=== PATIENT | female | born 1950 | race Caucasian/White ===

== ENCOUNTER → 2016-09-18 | Outpatient (CLI) | payer MEDICARE ==
--- NOTE | 2016-09-18 13:27 | ECHOS ---
DATE OF SERVICE: 09/18/2013 STRESS ECHOCARDIOGRAM INDICATION: Tachycardia and chest pressure. BASELINE HEART RATE: 90 BASELINE BLOOD PRESSURE: 130/97 MAXIMUM HEART RATE: 149 MAXIMUM BLOOD PRESSURE: 130/97 85% MPHR: 131 100% MPHR: 154 METS: 6.6 MAX STAGE REACHED: II TOTAL EXERCISE TIME: 4:45 Baseline EKG revealed sinus mechanism with IVCD of LBBB type isolated PVCs. Patient walked for 4 minutes 45 seconds. Had isolated PVCs. Achieved a maximum heart rate of 149 beats per minute, which is well above 85% of predicted maximum. She developed fatigue and shortness of breath, but did not have any angina or arrhythmia. EKG remained inconclusive. By EKG criteria, this is an inconclusive stress test with limited exercise capacity. There was a resting left bundle branch block pattern to begin with. Baseline echo images revealed a normal wall motion and wall thickening. At peak exercise, there was good augmentation of left ventricular wall motion and wall thickening of all segments. However, the fourth chamber view was suboptimal and endocardial margins were not seen. In all other views, there is good augmentation of left ventricular wall motion and wall thickening suggesting that there is no evidence of stress induced ischemia. FINAL IMPRESSION: 1. Limited exercise capacity with inconclusive stress test by EKG criteria. 2. Probably normal stress echocardiogram with somewhat limited views in the fourth chamber view postexercise, but no clear cut ischemia is noted. MTDD
== END | disposition home or self-care (01) ==
LOC: RADNMMAIN 09:04
PROVIDERS: ATTEND Family Medicine
DX: R00.0 Tachycardia, unspecified (principal)
CPT/HCPCS: 93017; 93350

== ENCOUNTER → 2017-02-16 | Outpatient (CLI) | payer MEDICARE ==
--- NOTE | 2017-02-18 12:43 | MM ---
Reason for exam: screening (asymptomatic). Last mammogram was performed 1 year and 1 month ago. History: Patient is postmenopausal and history of other cancer. Family history of premenopausal breast cancer in mother and breast cancer in paternal aunt. Physical Findings: A clinical breast exam by your physician is recommended on an annual basis and results should be correlated with mammographic findings. MG 3D Screening Mammo W/Cad Bilateral CC and MLO view(s) were taken. Prior study comparison: January 20, 2016, bilateral MG screening mammo w CAD. January 17, 2015, bilateral MG screening mammo w CAD. There are scattered fibroglandular densities. There are typically benign calcifications in both breasts. There is chronic nodularity bilaterally, stable. No significant changes when compared with prior studies. ASSESSMENT: Benign, BI-RAD 2 RECOMMENDATION: Routine screening mammogram of both breasts in 1 year.
== END | disposition home or self-care (01) ==
LOC: RADMAMWWP 10:32
PROVIDERS: ATTEND Family Medicine
DX: Z12.31 Encounter for screening mammogram for malignant neoplasm of breast (principal)
CPT/HCPCS: 77063; 77067

== ENCOUNTER 2018-02-11 08:34 | Emergency (ER) | payer MEDICARE ==
[2018-02-11 09:20] LABS: Basophils % (A) 1 %; Eosinophils # (A) 0.2 k/uL (0-0.7); Eosinophils % (A) 5 %; HCT 41.1 % (34.0-46.0); Lymphocytes # (A) 1.1 k/uL (1.0-4.8); Lymphocytes % (A) 23 %; MCH 28.2 pg (25.0-35.0); MCHC 34.1 g/dL (31.0-37.0); MCV 82.6 fL (80.0-100.0); Mean Platelet Volume 7.6; Monocytes # (A) 0.3 k/uL (0-1.0); Monocytes % (A) 6 %; Neutrophils # (A) 2.9 k/uL (1.3-7.7); Neutrophils % (A) 63 %; Platelet Count 202 k/uL (150-450); RBC 4.98 m/uL (3.80-5.40); RDW 13.2 % (11.5-15.5); WBC 4.7 k/uL (3.8-10.6)
[2018-02-11 09:32] LABS: ALT 37 U/L (9-52); AST 38 U/L (14-36); Albumin 4.1 g/dL (3.5-5.0); Alkaline Phosphatase 74 U/L (38-126); Anion Gap 9 mmol/L; Blood Urea Nitrogen 20 mg/dL (7-17); Calcium 10.1 mg/dL (8.4-10.2); Carbon Dioxide 26 mmol/L (22-30); Chloride 106 mmol/L (98-107); Glucose 97 mg/dL (74-99); INR 0.9 (<1.2); Partial Thromboplastin Time 23.2 sec (22.0-30.0); Potassium 3.9 mmol/L (3.5-5.1); Prothrombin Time 10.1 sec (9.0-12.0); Sodium 141 mmol/L (137-145); Total Bilirubin 0.4 mg/dL (0.2-1.3); Total Protein 7.1 g/dL (6.3-8.2)
--- NOTE | 2018-02-11 09:32 | ED ---
General Adult HPI - General Chief complaint: Chest Pain Stated complaint: palpitations Time Seen by Provider: 02/11/18 08:44 Source: patient, RN notes reviewed, old records reviewed Mode of arrival: wheelchair Limitations: no limitations - History of Present Illness Initial comments: 67-year-old female presenting for evaluation of palpitations and chest tightness. Approximately one hour prior to arrival patient developed some anterior substernal chest tightness associated with palpitations and tachycardia. She has had similar symptoms in the past, she is able to slow her heart rate down with the maneuvers. She follows with cardiology for the symptoms. She's had negative stress testing in the past several years. She has no known history of coronary artery disease. She is completely asymptomatic at the time my evaluation. She presented because she could not feel her pulse and measure her heart rate. She denies dyspnea. Denies diaphoresis. She is currently on metoprolol. - Related Data Home Medications Medication Instructions Recorded Confirmed Aspirin 81 mg PO DAILY 07/15/13 02/11/18 Hydrochlorothiazide [Hydrodiuril] 25 mg PO DAILY 07/15/13 02/11/18 Metoprolol Tartrate [Lopressor] 12.5 mg PO DAILY 07/15/13 02/11/18 Ramipril 10 mg PO DAILY 07/15/13 02/11/18 Albuterol Inhaler [Ventolin Hfa 1 - 2 puff INHALATION RT-Q6H PRN 02/11/18 Inhaler] Calcium Citrate 250 mg PO BID 02/11/18 02/11/18 Cholecalciferol [Vitamin D3] 1,000 unit PO BID 02/11/18 02/11/18 Lutein 10 mg PO TUTH 02/11/18 02/11/18 Allergies Allergy/AdvReac Type Severity Reaction Status Date / Time codeine AdvReac Vomiting Verified 02/11/18 09:38 Review of Systems ROS Statement: Those systems with pertinent positive or pertinent negative responses have been documented in the HPI. ROS Other: All systems not noted in ROS Statement are negative. Past Medical History Past Medical History: Hypertension Additional Past Medical History / Comment(s): + HEMOCCULT History of Any Multi-Drug Resistant Organisms: None Reported Past Surgical History: Orthopedic Surgery Additional Past Surgical History / Comment(s): COLONOSCOPY, ORIF LT LEG 03/2012 Past Anesthesia/Blood Transfusion Reactions: No Reported Reaction Past Psychological History: No Psychological Hx Reported Smoking Status: Never smoker Past Alcohol Use History: None Reported Past Drug Use History: None Reported - Past Family History Mother Family Medical History: Cancer General Exam Limitations: no limitations General appearance: alert, in no apparent distress Head exam: Present: atraumatic, normocephalic Eye exam: Present: normal appearance, PERRL ENT exam: Present: normal exam, other Neck exam: Present: other (Left lateral neck mass, soft, no induration, no erythema). Absent: tenderness, meningismus Respiratory exam: Present: normal lung sounds bilaterally. Absent: respiratory distress, wheezes Cardiovascular Exam: Present: regular rate, normal rhythm GI/Abdominal exam: Present: soft. Absent: distended, tenderness, guarding Extremities exam: Present: normal inspection, normal capillary refill. Absent: pedal edema, calf tenderness Neurological exam: Present: alert, oriented X3, CN II-XII intact. Absent: motor sensory deficit Psychiatric exam: Present: normal affect, normal mood Skin exam: Present: warm, dry. Absent: cyanosis, diaphoretic Course Vital Signs 02/11/18 02/11/18 02/11/18 08:37 09:30 10:00 Temperature 97.9 F Pulse Rate 78 67 63 Respiratory 16 12 14 Rate Blood Pressure 152/89 162/109 147/90 O2 Sat by Pulse 98 Oximetry 02/11/18 02/11/18 10:30 11:00 Temperature Pulse Rate 64 63 Respiratory 17 17 Rate Blood Pressure 153/87 160/80 O2 Sat by Pulse Oximetry - Reevaluation(s) Reevaluation #1: 02/11/18 12:48 No symptoms while in the emergency department, no pain, no tightness, no palpitations EKG Findings - EKG Comments: EKG Findings:: EKG: Normal sinus rhythm, left axis deviation, left bundle- branch block, rate of 70, ID interval 154, QRS duration 128, QTC 453, patient does have history of left bundle-branch block Medical Decision Making - Medical Decision Making 67-year-old female presenting with palpitations and some mild chest tightness. Symptoms resolved prior to arrival. She's had these symptoms in the past and it follows with merchandiser. She has no known history of CAD. EKG reveals left bundle branch block, no EKG available for comparison however patient does have previous stress test that indicates presence of baseline left bundle- branch block. Initial workup reveals chest x-ray with borderline cardiomegaly, no other acute findings. Normal CBC, normal CMP, negative troponin. Patient symptoms are somewhat concerning, I did offer observation for repeat cardiac enzymes, cardiology consultation. She declines. I was able to convince the patient to receive a second troponin in the emergency department which was negative, this was a 3 hour troponin. This is reassuring. She will return with worsening or changing symptoms. - Lab Data Result diagrams: 02/11/18 08:58 02/11/18 08:58 Lab Results 02/11/18 02/11/18 02/11/18 Range/Units 08:58 08:58 08:58 WBC 4.7 (3.8-10.6) k/uL RBC 4.98 (3.80-5.40) m/uL Hgb 14.0 (11.4-16.0) gm/dL Hct 41.1 (34.0-46.0) % MCV 82.6 (80.0-100.0) fL MCH 28.2 (25.0-35.0) pg MCHC 34.1 (31.0-37.0) g/dL RDW 13.2 (11.5-15.5) % Plt Count 202 (150-450) k/uL Neutrophils % 63 % Lymphocytes % 23 % Monocytes % 6 % Eosinophils % 5 % Basophils % 1 % Neutrophils # 2.9 (1.3-7.7) k/uL Lymphocytes # 1.1 (1.0-4.8) k/uL Monocytes # 0.3 (0-1.0) k/uL Eosinophils # 0.2 (0-0.7) k/uL Basophils # 0.0 (0-0.2) k/uL PT (9.0-12.0) sec INR (<1.2) APTT (22.0-30.0) sec Sodium 141 (137-145) mmol/L Potassium 3.9 (3.5-5.1) mmol/L Chloride 106 (98-107) mmol/L Carbon Dioxide 26 (22-30) mmol/L Anion Gap 9 mmol/L BUN 20 H (7-17) mg/dL Creatinine 0.76 (0.52-1.04) mg/dL Est GFR (CKD-EPI)AfAm >90 (>60 ml/min/1.73 sqM) Est GFR (CKD-EPI)NonAf 82 (>60 ml/min/1.73 sqM) Glucose 97 (74-99) mg/dL Calcium 10.1 (8.4-10.2) mg/dL Magnesium 2.0 (1.6-2.3) mg/dL Total Bilirubin 0.4 (0.2-1.3) mg/dL AST 38 H (14-36) U/L ALT 37 (9-52) U/L Alkaline Phosphatase 74 (38-126) U/L Total Creatine Kinase 92 (30-135) U/L CK-MB (CK-2) 1.1 (0.0-2.4) ng/mL CK-MB (CK-2) Rel Index 1.2 Troponin I <0.012 (0.000-0.034) ng/mL Total Protein 7.1 (6.3-8.2) g/dL Albumin 4.1 (3.5-5.0) g/dL 02/11/18 02/11/18 Range/Units 08:58 11:58 WBC (3.8-10.6) k/uL RBC (3.80-5.40) m/uL Hgb (11.4-16.0) gm/dL Hct (34.0-46.0) % MCV (80.0-100.0) fL MCH (25.0-35.0) pg MCHC (31.0-37.0) g/dL RDW (11.5-15.5) % Plt Count (150-450) k/uL Neutrophils % % Lymphocytes % % Monocytes % % Eosinophils % % Basophils % % Neutrophils # (1.3-7.7) k/uL Lymphocytes # (1.0-4.8) k/uL Monocytes # (0-1.0) k/uL Eosinophils # (0-0.7) k/uL Basophils # (0-0.2) k/uL PT 10.1 (9.0-12.0) sec INR 0.9 (<1.2) APTT 23.2 (22.0-30.0) sec Sodium (137-145) mmol/L Potassium (3.5-5.1) mmol/L Chloride (98-107) mmol/L Carbon Dioxide (22-30) mmol/L Anion Gap mmol/L BUN (7-17) mg/dL Creatinine (0.52-1.04) mg/dL Est GFR (CKD-EPI)AfAm (>60 ml/min/1.73 sqM) Est GFR (CKD-EPI)NonAf (>60 ml/min/1.73 sqM) Glucose (74-99) mg/dL Calcium (8.4-10.2) mg/dL Magnesium (1.6-2.3) mg/dL Total Bilirubin (0.2-1.3) mg/dL AST (14-36) U/L ALT (9-52) U/L Alkaline Phosphatase (38-126) U/L Total Creatine Kinase (30-135) U/L CK-MB (CK-2) (0.0-2.4) ng/mL CK-MB (CK-2) Rel Index Troponin I <0.012 (0.000-0.034) ng/mL Total Protein (6.3-8.2) g/dL Albumin (3.5-5.0) g/dL Disposition Clinical Impression: Palpitations Disposition: HOME SELF-CARE Condition: Good Instructions: Heart Palpitations (ED), Chest Pain (ED) Is patient prescribed a controlled substance at d/c from ED?: No Referrals: Martinez Cook MD [Primary Care Provider] - 1-2 days Jose Lock MD [STAFF PHYSICIAN] - 1-2 days Time of Disposition: 12:48
[2018-02-11 09:44] LABS: Creatine Kinase 92 U/L (30-135)
[2018-02-11 09:57] LABS: Creatine Kinase MB 1.1 ng/mL (0.0-2.4); Troponin I <0.012 ng/mL (0.000-0.034)
--- NOTE | 2018-02-11 10:10 | XR ---
EXAMINATION TYPE: XR chest 2V DATE OF EXAM: 02/11/2018 COMPARISON: None HISTORY: 67-year-old female with chest pain TECHNIQUE: PA and lateral views FINDINGS: Heart borderline enlarged. Aorta within normal limits. Mild biapical pleural-parenchymal scarring. Mi ld hyperinflation. No consolidation or pleural effusion. IMPRESSION: Borderline heart size. Possible underlying COPD. No acute process seen.
[2018-02-11 13:11] VITALS: BP 166/100; PULSE 70; RESP 18; TEMP 97.8
== END 2018-02-11 13:11 | disposition home or self-care (01) ==
LOC: EC 08:34
DX: R00.2 Palpitations (principal); R07.89 Other chest pain; R00.0 Tachycardia, unspecified; I44.7 Left bundle-branch block, unspecified; I10 Essential (primary) hypertension; Z79.82 Long term (current) use of aspirin; Z79.899 Other long term (current) drug therapy; Z88.5 Allergy status to narcotic agent
CPT/HCPCS: 36415; 71046; 80053; 82550; 82553; 83735; 84484; 85025; 85610; 85730; 93005; 99285

== ENCOUNTER → 2018-02-27 | Outpatient (CLI) | payer MEDICARE ==
--- NOTE | 2018-03-01 14:35 | MM ---
Reason for exam: screening (asymptomatic). Last mammogram was performed 1 year ago. History: Patient is postmenopausal and history of other cancer. Family history of premenopausal breast cancer in mother and breast cancer in paternal aunt. MG 3D Screening Mammo W/Cad Bilateral CC and MLO view(s) were taken. Prior study comparison: February 16, 2017, bilateral MG 3d screening mammo w/cad. January 20, 2016, bilateral MG screening mammo w CAD. There are scattered fibroglandular densities. There is bilateral chronic nodularity. No significant changes when compared with prior studies. ASSESSMENT: Benign, BI-RAD 2 RECOMMENDATION: Routine screening mammogram of both breasts in 1 year.
== END | disposition home or self-care (01) ==
LOC: RADMAMWWP 08:25
PROVIDERS: ATTEND Family Medicine
DX: Z12.31 Encounter for screening mammogram for malignant neoplasm of breast (principal)
CPT/HCPCS: 77063; 77067

== ENCOUNTER → 2019-03-02 | Outpatient (CLI) | payer MEDICARE ==
--- NOTE | 2019-03-02 13:28 | MM ---
Reason for exam: screening (asymptomatic). Last mammogram was performed 1 year ago. History: Patient is postmenopausal and history of other cancer. Family history of premenopausal breast cancer in mother and breast cancer in paternal aunt. Physical Findings: A clinical breast exam by your physician is recommended on an annual basis and results should be correlated with mammographic findings. MG 3D Screening Mammo W/Cad Bilateral CC and MLO view(s) were taken. Prior study comparison: February 27, 2018, bilateral MG 3d screening mammo w/cad. February 16, 2017, bilateral MG 3d screening mammo w/cad. There are scattered fibroglandular densities. There are benign appearing round calcifications in the right breast. There is chronic nodularity bilaterally. There is no discrete abnormality. ASSESSMENT: Benign, BI-RAD 2 RECOMMENDATION: Routine screening mammogram of both breasts in 1 year.
== END | disposition home or self-care (01) ==
LOC: RADMAMWWP 06:58
PROVIDERS: ATTEND Family Medicine
DX: Z12.31 Encounter for screening mammogram for malignant neoplasm of breast (principal)
CPT/HCPCS: 77063; 77067

== ENCOUNTER → 2020-04-21 | Outpatient (CLI) | payer MEDICARE | LOC: RADMAMWWP 09:07 | PROVIDERS: ATTEND Family Medicine | DX: Z53.9 Procedure and treatment not carried out, unspecified reason (principal) ==

== ENCOUNTER → 2020-06-03 | Outpatient (CLI) | payer MEDICARE ==
--- NOTE | 2020-06-03 15:15 | US ---
EXAMINATION TYPE: US carotid duplex BILAT DATE OF EXAM: 06/03/2020 COMPARISON: NONE CLINICAL HISTORY: 70-year-old female R41.3 Poor short term memory. Memory loss per patient. No HTN. No hx CA. TECHNIQUE: Carotid duplex ultrasound examination. Indirect Doppler criteria is visualized. FINDINGS: EXAM MEASUREMENTS: RIGHT: Peak Systolic Velocity (PSV) cm/sec ----- Right CCA: 72.8 ----- Right ICA: 71.2 ----- Right ECA: 83.8 ICA/CCA ratio: 1.0 RIGHT: End Diastole cm/sec ----- Right CCA: 20.1 ----- Right ICA: 17.8 ----- Right ECA: 20.7 LEFT: Peak Systolic Velocity (PSV) cm/sec ----- Left CCA: 60.3 ----- Left ICA: 70.3 ----- Left ECA: 57.4 ICA/CCA ratio: 1.2 LEFT: End Diastole cm/sec ----- Left CCA: 23.0 ----- Left ICA: 28.3 ----- Left ECA: 12.6 VERTEBRALS (direction of flow): Right Vertebral: Antegrade Left Vertebral: Antegrade Rhythm: Normal Dental Intern notes: No plaque or wall thickening. No elevated velocities or significant stenosis. CERAMIC SPRAYER NOTES: Incidental finding: palpable on left lateral neck. Complex vascular lesion seen = 5.2 x 4.8 x 2.0 cm. After the exam, patient states she does know about the right lateral neck palpable and sometimes gets it drained. IMPRESSION: 1. No hemodynamically significant internal carotid artery stenosis on either side. 2. Incidental large, complex cystic left neck mass measuring up to 5.2 cm. Possible lymphatic malfor mations. The patient states that this occasionally has to be drained. Please ensure that this is a kn own finding and appropriate workup has been performed. Criteria for Assigning % of Stenosis / Diameter reduction (Estimation based on the indirect measurements of the internal carotid artery velocities (ICA PSV). 1. Normal (no stenosis)=ICA PSV < 125 cm/s: ratio < 2.0: ICA EDV<40 cm/s. 2. Less than 50% stenosis=ICA PSV < 125 cm/s: ratio < 2.0: ICA EDV<40 cm/s. 3. 50 to 69% stenosis=ICA PSV of 125 to 230 cm/s: ration 2.0 ? 4.0: ICA EDV 40-100 cm/s. 4. Greater than 70% stenosis to near occlusion= ICA PSV > 230 cm/s: ratio > 4.0: ICA EDV > 100 cm/s. 5. Near occlusion= ICA PSV velocities may be low or undetectable: variable ratio and ICA EDV. 6. Total occlusion=unable to detect flow.
== END | disposition home or self-care (01) ==
LOC: RADUSWWP 10:40
PROVIDERS: ATTEND Family Medicine
DX: R41.3 Other amnesia (principal)
CPT/HCPCS: 93880

== ENCOUNTER 2020-06-05 19:44 | Emergency (ER) | payer MEDICARE ==
[2020-06-05 19:51] VITALS: PULSE 63; RESP 18
[2020-06-05] MEDS ORDERED: DIPH,PERTUS(ACELL)TETVAC-LF 0.5 ML VIAL IM ONE (20:25)
--- NOTE | 2020-06-05 20:52 | CT ---
EXAMINATION TYPE: CT brain roseann li DATE OF EXAM: 06/05/2020 COMPARISON: None HISTORY: fall CT DLP: combined DLP 1080.3 mGycm Automated exposure control for dose reduction was used. Images obtained of the brain and cervical spine without contrast. There is cerebral atrophy. There is no mass effect nor midline shift. There is no sign of intracrania l hemorrhage. Calvarium is intact. There is a few millimeter anterior subluxation of C5 in relation to C6. Facet joints are intact. Ther e is multilevel hypertrophic facet arthropathy. There is disc space narrowing at C6-7. There is no co mpression fracture. Skull base is intact. There is normal aeration of the mastoid sinuses. IMPRESSION: Cerebral atrophy. No acute intracranial abnormality. Degenerative C5-6 spondylolisthesis. No fracture seen of the cervical spine. Multilevel hypertrophic cervical facet arthropathy.
--- NOTE | 2020-06-05 20:54 | CT ---
EXAMINATION TYPE: CT facial bones wo con DATE OF EXAM: 06/05/2020 COMPARISON: None HISTORY: fall CT DLP: combined DLP 1080.3 mGycm Automated exposure control for dose reduction was used. Images were obtained from the base of the neck to the top of the frontal sinuses without contrast. The mandibular ring is intact. Temporomandibular joints are intact. The zygomatic arches appear deisy l. Maxilla is intact. Nasal bone appears intact. There is fairly normal aeration of the paranasal sin uses. The orbital margins are intact. There is no evidence of retro-orbital mass. There is no evidence of a blowout fracture of the orbits. IMPRESSION: Negative CT scan of the facial bones. No fracture.
--- NOTE | 2020-06-05 20:56 | XR ---
EXAMINATION TYPE: XR hand complete bilateral DATE OF EXAM: 06/05/2020 COMPARISON: NONE HISTORY: Laceration. Pain. TECHNIQUE: 3 views each hand FINDINGS: There is severe narrowing and spur formation at the right and left first carpometacarpal milly int. The MP joints spaces are fairly normal. There is no subluxation. I see no focal bone destruction . There is no evidence of a foreign body. 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 No fracture seen.
--- NOTE | 2020-06-05 21:16 | ED ---
General Adult HPI - General Chief complaint: Wound/Laceration Stated complaint: Fall, Head Lac Time Seen by Provider: 06/05/20 19:54 Source: patient Mode of arrival: ambulatory Limitations: no limitations - History of Present Illness Initial comments: 70-year-old female presents to the emergency room for a chief complaint of mechanical fall. Patient states she was walking up stairs. States her shoes stuck to the stair and did not lift properly which caused her to fall forward. States she fell and hit her head and face. Patient states she also injured both her hands. She has a laceration to the left hand as well as the right eyebrow. Patient also has bruising noted to the right maxillary area. No periorbital edema. Patient denies any loss of consciousness. Denies any blood thinners. Denies any lightheadedness or chest pain preceding this fall.Patient has no other complaints at this time including shortness of breath, chest pain, abd ominal pain, nausea or vomiting, headache, or visual changes. - Related Data Home Medications Medication Instructions Recorded Confirmed Aspirin 81 mg PO DAILY 07/15/13 02/11/18 Metoprolol Tartrate [Lopressor] 12.5 mg PO DAILY 07/15/13 02/11/18 Ramipril 10 mg PO DAILY 07/15/13 02/11/18 hydroCHLOROthiazide [Hydrodiuril] 25 mg PO DAILY 07/15/13 02/11/18 Albuterol Inhaler (Mhu) [Ventolin 1 - 2 puff INHALATION RT-Q6H PRN 02/11/18 02/11/18 Hfa Inhaler] Calcium Citrate 250 mg PO BID 02/11/18 02/11/18 Cholecalciferol [Vitamin D3] 1,000 unit PO BID 02/11/18 02/11/18 Lutein 10 mg PO TUTH 02/11/18 02/11/18 Previous Rx's Medication Instructions Recorded Cephalexin [Keflex] 500 mg PO BID 20 Days #5 cap 06/05/20 Allergies Allergy/AdvReac Type Severity Reaction Status Date / Time codeine AdvReac Vomiting Verified 06/05/20 19:50 Review of Systems ROS Statement: Those systems with pertinent positive or pertinent negative responses have been documented in the HPI. ROS Other: All systems not noted in ROS Statement are negative. Past Medical History Past Medical History: Hypertension Additional Past Medical History / Comment(s): + HEMOCCULT History of Any Multi-Drug Resistant Organisms: None Reported Past Surgical History: Orthopedic Surgery Additional Past Surgical History / Comment(s): COLONOSCOPY, ORIF LT LEG 03/2012 Past Anesthesia/Blood Transfusion Reactions: No Reported Reaction Past Psychological History: No Psychological Hx Reported Smoking Status: Never smoker Past Alcohol Use History: None Reported Past Drug Use History: None Reported - Past Family History Mother Family Medical History: Cancer General Exam - General Exam Comments Initial Comments: Small abrasions noted on the palms of the bilateral hands. No significant tenderness. There is a 1 cm laceration on the base of the left thumb. No evidence of foreign body. Capillary refill less than 2 seconds in bilateral upper extremities. Radial pulses 2+. Limitations: no limitations General appearance: alert, in no apparent distress Head exam: Present: normocephalic, normal inspection. Absent: atraumatic (Patient has a small 2 cm laceration noted to the right eyebrow) Eye exam: Present: normal appearance, PERRL, EOMI. Absent: scleral icterus, conjunctival injection, periorbital swelling ENT exam: Present: normal exam, mucous membranes moist Neck exam: Present: normal inspection, full ROM. Absent: tenderness, meningismus, lymphadenopathy Respiratory exam: Present: normal lung sounds bilaterally. Absent: respiratory distress, wheezes, rales, rhonchi, stridor Cardiovascular Exam: Present: regular rate, normal rhythm, normal heart sounds. Absent: systolic murmur, diastolic murmur, rubs, gallop, clicks GI/Abdominal exam: Present: soft, normal bowel sounds. Absent: distended, tenderness, guarding, rebound, rigid Course Vital Signs 06/05/20 19:45 Temperature 97.9 F Pulse Rate 63 Respiratory 18 Rate Blood Pressure 182/93 O2 Sat by Pulse 100 Oximetry Medical Decision Making - Medical Decision Making Vitals are stable. Patient hypertensive likely secondary to pain. She does a lso have a history of hypertension. HPI and physical exam as documented. CT brain showed no acute intracranial abnormality. CT cervical spine did show degenerative changes without fracture. CT facial bones is negative. X-ray of the bilateral hands is negative. Advanced osteoarthritis without fracture. Lacerations were irrigated and repaired. Care parameters discussed. I did discuss return parameters as well. Disposition Clinical Impression: Laceration, Fall, Head trauma Disposition: HOME SELF-CARE Condition: Good Instructions (If sedation given, give patient instructions): Care For Your Stitches (ED), Laceration (ED), Head Injury (ED) Additional Instructions: Please apply antibiotic ointment twice daily. Monitor for signs of infection such as spreading or streaking redness and return if these occur. Return in about 7 days for suture removal. Prescriptions: Cephalexin [Keflex] 500 mg PO BID 20 Days #5 cap Is patient prescribed a controlled substance at d/c from ED?: No Referrals: Martinez Cook MD [Primary Care Provider] - 1-2 days Time of Disposition: 22:01
[2020-06-05] MEDS ORDERED: CEPHALEXIN 500MG STARTER PACK 4 CAP BTL PO STA (22:00)
[2020-06-05] MEDS ORDERED: BACITRACIN OINT 1 EACH PACKET TOPICAL STA (22:00)
[2020-06-05 22:32] VITALS: BP 163/94; TEMP 98
== END 2020-06-05 22:25 | disposition home or self-care (01) ==
LOC: EC 19:44
DX: S61.012A Laceration without foreign body of left thumb without damage to nail, initial encounter (principal); S01.111A Laceration without foreign body of right eyelid and periocular area, initial encounter; I10 Essential (primary) hypertension; Z79.82 Long term (current) use of aspirin; Z23 Encounter for immunization; W10.8XXA Fall (on) (from) other stairs and steps, initial encounter; Y93.01 Activity, walking, marching and hiking
CPT/HCPCS: 70450; 70486; 72125; 90471; 90715; 99284

== ENCOUNTER → 2020-06-14 | Outpatient (CLI) | payer MEDICARE ==
--- NOTE | 2020-06-15 10:43 | MM ---
Reason for exam: screening (asymptomatic). Last mammogram was performed 1 year and 3 months ago. History: Patient is postmenopausal and history of other cancer. Family history of breast cancer in mother at age 50. Physical Findings: A clinical breast exam by your physician is recommended on an annual basis and results should be correlated with mammographic findings. MG 3D Screening Mammo W/Cad Bilateral CC and MLO view(s) were taken. Prior study comparison: March 02, 2019, bilateral MG 3d screening mammo w/cad. February 27, 2018, bilateral MG 3d screening mammo w/cad. There are scattered fibroglandular densities. There are benign appearing round calcifications bilaterally. There is chronic nodularity bilaterally. There is no discrete abnormality. ASSESSMENT: Benign, BI-RAD 2 RECOMMENDATION: Routine screening mammogram of both breasts in 1 year.
== END | disposition home or self-care (01) ==
LOC: RADMAMWWP 12:33
PROVIDERS: ATTEND Family Medicine
DX: Z12.31 Encounter for screening mammogram for malignant neoplasm of breast (principal); Z80.3 Family history of malignant neoplasm of breast; Z78.0 Asymptomatic menopausal state
CPT/HCPCS: 77063; 77067

== ENCOUNTER → 2021-04-10 | Outpatient (CLI) | payer MEDICARE ==
--- NOTE | 2021-04-11 08:06 | CT ---
EXAMINATION TYPE: CT angio neck DATE OF EXAM: 04/10/2021 HISTORY: Unspecified dementia w/out behavioral disturbance. Enlargement LT side of neck. COMPARISON: CT dated 06/05/2020 CT DLP: 190.40 mGycm. Automated Exposure Control for Dose Reduction was Utilized. TECHNIQUE: CTA scan of the neck is performed with IV Contrast, patient injected with 65 mL of Isovue 370, axial images are obtained, coronal and sagittal reformatted images are reviewed. 3D reconstruct ed images are created on an independent workstation and reviewed. FINDINGS: Complex predominantly cystic lesion seen in the left side of the neck deep to the sternocleidomastoid muscle extending from C1-2 level down to C6 level. The lesion measures 2.3 x 6 x 5.9 cm in maximum d imensions and demonstrates multiple enhancing septation within. An enhancing solid component is also seen along the medial aspect of the lesion measuring 10 x 13 mm. This lesion can be appreciated previously in May 2020 CT scan when it measured 19 x 55 mm. The lesi on is inseparable from the medial aspect of the left sternocleidomastoid muscle without gracy invasio n and medially is inseparable from the left carotid canal without invasion into the adjacent vessels. Anteriorly, the lesion is inseparable from the posterior aspect of the left submandibular salivary g land without invasion. Dominant left vertebral artery with small left vertebral artery. Otherwise normal caliber and enhance ment of the major neck arteries without significant stenosis, occlusion, dissection, aneurysm or AV m alformation. The left internal jugular vein is attenuated in caliber due to the mass effect of the de scribed cystic lesion. Unremarkable nasopharynx, oropharynx, hypopharynx, larynx and visualized portion of the trachea and e sophagus. Suspected right thyroid gland hypodensity, please correlate with ultrasound results. Symmet rical unremarkable parotid and submandibular salivary glands. No pathologically enlarged lymph nodes in the neck. Minimal bilateral apical pulmonary fibrotic changes. Degenerative changes of the cervica l spine with multilevel facet osteoarthropathy. IMPRESSION: Left side of the neck of complex cystic lesion as described above. Differential diagnosis includes cy stic hygroma versus branchial cleft cyst, possibly infected. Abscess cannot be excluded. The lesion i s likely benign considering the minimal interval change in size since May 2020 CT scan. Recommend s urgical consultation. Other incidental findings as described above.
== END | disposition home or self-care (01) ==
LOC: RADCTMAIN 14:58
PROVIDERS: ATTEND Family Medicine
DX: R94.4 Abnormal results of kidney function studies (principal); R22.1 Localized swelling, mass and lump, neck
CPT/HCPCS: 82565; 84520; 70498; 36415; Q9967

== ENCOUNTER → 2021-06-16 | Outpatient (CLI) | payer MEDICARE ==
--- NOTE | 2021-06-19 11:35 | MM ---
Reason for exam: screening (asymptomatic). Last mammogram was performed 1 year ago. History: Patient is postmenopausal and history of other cancer. Family history of breast cancer in mother at age 50. Physical Findings: A clinical breast exam by your physician is recommended on an annual basis and results should be correlated with mammographic findings. MG 3D Screening Mammo W/Cad Bilateral CC and MLO view(s) were taken. Prior study comparison: June 14, 2020, bilateral MG 3d screening mammo w/cad. March 02, 2019, bilateral MG 3d screening mammo w/cad. There are scattered fibroglandular densities. There are benign appearing round calcifications bilaterally. There is chronic nodularity bilaterally. There is no discrete abnormality. ASSESSMENT: Benign, BI-RAD 2 RECOMMENDATION: Routine screening mammogram of both breasts in 1 year.
== END | disposition home or self-care (01) ==
LOC: RADMAMWWP 07:15
PROVIDERS: ATTEND Family Medicine
DX: Z12.31 Encounter for screening mammogram for malignant neoplasm of breast (principal); Z78.0 Asymptomatic menopausal state; Z80.3 Family history of malignant neoplasm of breast
CPT/HCPCS: 77063; 77067

== ENCOUNTER → 2022-07-12 | Outpatient (CLI) | payer MEDICARE | LOC: RADMAMWWP 10:46 | PROVIDERS: ATTEND Family Medicine | DX: Z53.9 Procedure and treatment not carried out, unspecified reason (principal) ==

== ENCOUNTER 2023-04-04 14:18 | Emergency (ER) | payer MEDICARE ==
[2023-04-04 14:53] VITALS: TEMP 97.5
--- NOTE | 2023-04-04 15:06 | ED ---
General Adult HPI - General Source: patient, family, RN notes reviewed, old records reviewed Mode of arrival: wheelchair Limitations: physical limitation <Morales Dimas - Last Filed: 04/04/23 15:16> <Sylvie Byrd - Last Filed: 04/06/23 08:22> - General Chief complaint: Fall Stated complaint: Fall, injury to nose and L wrist Time Seen by Provider: 04/04/23 14:28 - History of Present Illness Initial comments: Is a 73-year-old female who presents emergency department complaining of a fall. She is a history of dementia, hypertension who presents emergency department after a fall. Was a mechanical fall and witnessed by . Believes she tripped and fell striking her face on an unknown object. Has an abrasion to her nose. No loss of consciousness. She is not on blood thinners. Also has injury to the left wrist. Presents for further evaluation at this time. Unknown last tetanus. (Morales Dimas) - Related Data Home Medications Medication Instructions Recorded Confirmed Aspirin 81 mg PO DAILY 07/15/13 02/11/18 Metoprolol Tartrate [Lopressor] 12.5 mg PO DAILY 07/15/13 02/11/18 Ramipril 10 mg PO DAILY 07/15/13 02/11/18 hydroCHLOROthiazide [Hydrodiuril] 25 mg PO DAILY 07/15/13 02/11/18 Albuterol Inhaler [Ventolin Hfa 1 - 2 puff INHALATION RT-Q6H PRN 02/11/18 02/11/18 Inhaler] Calcium Citrate 250 mg PO BID 02/11/18 02/11/18 Cholecalciferol [Vitamin D3] 1,000 unit PO BID 02/11/18 02/11/18 Lutein 10 mg PO TUTH 02/11/18 02/11/18 Previous Rx's Medication Instructions Recorded Cephalexin [Keflex] 500 mg PO BID 20 Days #5 cap 06/05/20 Allergies Allergy/AdvReac Type Severity Reaction Status Date / Time codeine AdvReac Vomiting Verified 04/06/23 06:26 Review of Systems ROS Other: All systems not noted in ROS Statement are negative. <Morales Dimas - Last Filed: 04/04/23 15:16> ROS Other: All systems not noted in ROS Statement are negative. <Sylvie Byrd - Last Filed: 04/06/23 08:22> ROS Statement: Those systems with pertinent positive or pertinent negative responses have been documented in the HPI. Review of Systems: CONST: Denies fever EYES: Denies blurry vision ENT: Denies nasal congestion C/V: Denies Chest pain RESP: Denies shortness of breath GI: Denies abdominal pain : Denies dysuria SKIN: Endorses nose abrasion MSK: Endorses left wrist pain NEURO: Denies headache (Morales Dimas) Past Medical History Past Medical History: Hypertension Additional Past Medical History / Comment(s): + HEMOCCULT History of Any Multi-Drug Resistant Organisms: None Reported Past Surgical History: Orthopedic Surgery Additional Past Surgical History / Comment(s): COLONOSCOPY, ORIF LT LEG 03/2012 Past Anesthesia/Blood Transfusion Reactions: No Reported Reaction Past Psychological History: No Psychological Hx Reported Smoking Status: Never smoker Past Alcohol Use History: None Reported Past Drug Use History: None Reported - Past Family History Mother Family Medical History: Cancer <Morales Dimas - Last Filed: 04/04/23 15:16> General Exam Limitations: physical limitation <Morales Dimas - Last Filed: 04/04/23 15:16> - General Exam Comments Initial Comments: General: Appears in no acute distress. HEAD: Abrasion over the bridge of her nose. Negative Spencer sign. Negative raccoon eyes. EYES: PERRLA, EOMI, conjunctiva normal, no discharge. Pupils are 2 mm and equal bilaterally. ENT: Hearing grossly intact, normal oropharynx. RESPIRATORY: Clear breath sounds bilaterally. No wheezes, rales, or rhonchi. C/V: Regular rate and rhythm. S1 and S2 auscultated, no edema, peripheral pulses 2+ and intact throughout ABD: Abd is soft, nontender, nondistended EXT: Normal range of motion, no obvious deformity. Pelvis is stable. Tenderness to palpation over the left wrist with reduced range of motion. Neurovascular intact throughout. No obvious midline cervical, thoracic, lumbar spine tenderness to palpation. SKIN: Abrasion over the nose. NEURO: Alert and oriented x 1-2. At her baseline. No obvious deficits. GCS of 15. (Morales Dimas) Course Vital Signs 04/04/23 04/04/23 14:23 18:06 Temperature 97.5 F L Pulse Rate 67 59 L Respiratory 18 16 Rate Blood Pressure 116/76 137/80 O2 Sat by Pulse 98 95 Oximetry Procedures - Orthopedic Splinting/Casting Injury #1 Side: left Upper Extremity Injury Location: long arm Upper Extremity Immobilizer: sling/shoulder immobilizer, sugar tong splint, synthetic pre-padded splint <Sylvie Byrd - Last Filed: 04/06/23 08:22> Medical Decision Making - Lab Data Result diagrams: 04/04/23 15:03 - EKG Data -: EKG Interpreted by Me <Morales Dimas - Last Filed: 04/04/23 15:16> - Lab Data Result diagrams: 04/04/23 15:03 04/04/23 15:03 <Sylvie Byrd - Last Filed: 04/06/23 08:22> - Medical Decision Making Was pt. sent in by a medical professional or institution (Dr. PA, MANAGER [facility], urgent care, hospital, or jail...) When possible be specific @ -No Did you speak to anyone other than the patient for history (EMS, parent, family, police, friend...)? What history was obtained from this source @ -Patient's is the primary historian for the patient. Did you review nursing and triage notes (agree or disagree)? Why? @ -I reviewed and agree with nursing and triage notes Were old charts reviewed (outside hosp., previous admission, EMS record, old EKG, old radiological studies, urgent care reports/EKG's, jail records)? Report findings @ -Old charts reviewed Differential Diagnosis (chest pain, altered mental status, abdominal pain women, abdominal pain men, vaginal bleeding, weakness, fever, dyspnea, syncope, headache, dizziness, GI bleed, back pain, seizure, CVA, palpatations, mental health, musculoskeletal)? @ -Differential Musculoskeletal Muscular strain, contusion, ligament sprain, fracture, arthritis, septic arthritis, bursitis, cellulitis, muscle spasm, nerve compression, DVT, arterial occlusion, herpes zoster, electrolyte abnormality, tumor.... This is not meant to be in all inclusive list also includes any intracranial injury. EKG interpreted by me (3pts min.). @ -Pending X-rays interpreted by me (1pt min.). @ -Pending CT interpreted by me (1pt min.). @ -Pending U/S interpreted by me (1pt. min.). @ -None done What testing was considered but not performed or refused? (CT, X-rays, U/S, labs)? Why? @ -None What meds were considered but not given or refused? Why? @ -None Did you discuss the management of the patient with other professionals (professionals i.e. Dr., PA, MA[employer]GER [employer], lab, RT, psych nurse, social media assistant, compliance examiner, teacher, hospital admissions officer, case picker)? Give summary @ -No Was smoking cessation discussed for >3mins.? @ -No Was critical care preformed (if so, how long)? @ -No Were there social determinants of health that impacted care today? How? (Homelessness, low income, unemployed, alcoholism, drug addiction, transport ation, low edu. Level, literacy, decrease access to med. care, fci, rehab)? @ -No Was there de-escalation of care discussed even if they declined (Discuss DNR or withdrawal of care, Hospice)? DNR status @ -No What co-morbidities impacted this encounter? (DM, HTN, Smoking, COPD, CAD, Cancer, CVA, ARF, Chemo, Hep., AIDS, mental health diagnosis, sleep apnea, morbid obesity)? @ -None Was patient admitted / discharged? Hospital course, mention meds given and route, prescriptions, significant lab abnormalities, going to OR and other pertinent info. @ -Patient presents after a fall with left wrist injury, as well as abrasion over the nasal bridge. Patient will be updated with tetanus, given Tylenol for analgesia as well as 1 L fluid bolus. Basic labs will be obtained as well as a screening EKG with CT brain, C-spine, facial bones as well as chest and pelvis x-ray. Vital signs are within acceptable limits. Is at her baseline mental status at this time. Patient signed out to Dr. Byrd pending results of workup. Undiagnosed new problem with uncertain prognosis? @ -No Drug Therapy requiring intensive monitoring for toxicity (Heparin, Nitro, Insulin, Cardizem)? @ -No Were any procedures done? @ -No (Morales Dimas) Was patient admitted / discharged? Hospital course, mention meds given and route, prescriptions, significant lab abnormalities, going to OR and other pertinent info. @ -Patient signed out to me pending imaging. CT of the brain and cervical spine is negative for any acute process. Chest and pelvic x-ray is also within normal limits. Patient does have a left Colles' fracture. This is placed in a splint. They were instructed to alternate taking Motrin and Tylenol for pain control and follow-up with orthopedic office for further management of the break. Patient, and daughter are all aware of this. Patient is discharged in stable condition Undiagnosed new problem with uncertain prognosis? @ -No Drug Therapy requiring intensive monitoring for toxicity (Heparin, Nitro, Insulin, Cardizem)? @ -No Were any procedures done? @ -No Diagnosis/symptom? @ -Acute fall, left Colles' fracture, nasal bridge abrasion, blunt head trauma Acute, or Chronic, or Acute on Chronic? @ -Acute Uncomplicated (without systemic symptoms) or Complicated (systemic symptoms)? @ -Complicated Side effects of treatment? @ -No Exacerbation, Progression, or Severe Exacerbation? @ -No Poses a threat to life or bodily function? How? (Chest pain, [place], [place], pneumonia, PE, COPD, DKA, ARF, appy, cholecystitis, CVA, Diverticulitis, Homicidal, Suicidal, threat to staff... and all critical care pts) @ -No (Sylvie Byrd) - Lab Data Lab Results 04/04/23 04/04/23 04/04/23 Range/Units 15:03 15:03 15:30 WBC 7.6 (3.8-10.6) k/uL RBC 4.72 (3.80-5.40) m/uL Hgb 13.6 (11.4-16.0) gm/dL Hct 40.2 (34.0-46.0) % MCV 85.2 (80.0-100.0) fL MCH 28.7 (25.0-35.0) pg MCHC 33.7 (31.0-37.0) g/dL RDW 13.2 (11.5-15.5) % Plt Count 193 (150-450) k/uL MPV 8.8 Neutrophils % 72 % Lymphocytes % 15 % Monocytes % 6 % Eosinophils % 5 % Basophils % 1 % Neutrophils # 5.5 (1.3-7.7) k/uL Lymphocytes # 1.1 (1.0-4.8) k/uL Monocytes # 0.5 (0-1.0) k/uL Eosinophils # 0.4 (0-0.7) k/uL Basophils # 0.0 (0-0.2) k/uL PT 10.6 (10.0-12.5) sec INR 1.0 (<1.2) APTT 22.2 (22.0-30.0) sec Sodium 138 (137-145) mmol/L Potassium 4.0 (3.5-5.1) mmol/L Chloride 108 H (98-107) mmol/L Carbon Dioxide 24 (22-30) mmol/L Anion Gap 6 mmol/L BUN 26 H (7-17) mg/dL Creatinine 0.92 (0.52-1.04) mg/dL Est GFR (CKD-EPI)AfAm 72 (>60 ml/min/1.73 sqM) Est GFR (CKD-EPI)NonAf 62 (>60 ml/min/1.73 sqM) Glucose 103 H (74-99) mg/dL Calcium 9.2 (8.4-10.2) mg/dL Total Bilirubin 0.7 (0.2-1.3) mg/dL AST 32 (14-36) U/L ALT 20 (4-34) U/L Alkaline Phosphatase 124 (38-126) U/L Total Protein 6.9 (6.3-8.2) g/dL Albumin 4.2 (3.5-5.0) g/dL - EKG Data EKG Comments: 12-lead Electrocardiogram Interpretation Note EKG was reviewed and interpreted by myself. 12-lead ECG performed at 1512 is interpreted by me as revealing normal sinus rhythm with left bundle branch block at a rate of 68 beats per minute. Left axis deviation. HI interval is 130 ms, QRS duration is 162 ms, QTc is 485 ms.. There were no ST or T wave abnormalities to suggest myocardial ischemia or injury. R wave progression across the precordium was delayed. By my interpretation this EKG is non- diagnostic for acute ischemia. (Morales Dimas) Disposition <Morales Dimas - Last Filed: 04/04/23 15:16> Is patient prescribed a controlled substance at d/c from ED?: No Time of Disposition: 17:52 <Sylvie Byrd - Last Filed: 04/06/23 08:22> Clinical Impression: Fall, Blunt head trauma, Skin abrasion, Left arm pain, Colles' fracture Disposition: HOME SELF-CARE Condition: Stable Instructions (If sedation given, give patient instructions): Wrist Fracture in Adults (ED) Additional Instructions: Please alternate taking Motrin and Tylenol for pain every 4 hours. Follow-up with the orthopedic office. Call tomorrow to make an appointment. Do not get your splint wet. Return for any new or worsening symptoms Referrals: Martinez Cook MD [Primary Care Provider] - 1-2 days Juvencio Bains MD [STAFF PHYSICIAN] - 1-2 days
[2023-04-04] MEDS: SODIUM CHLORIDE 0.9% 500 ML 500 ML IV ONE (15:11)
[2023-04-04 15:12] LABS: Basophils % (A) 1 %; Eosinophils # (A) 0.4 k/uL (0-0.7); Eosinophils % (A) 5 %; HCT 40.2 % (34.0-46.0); HGB 13.6 gm/dL (11.4-16.0); Lymphocytes # (A) 1.1 k/uL (1.0-4.8); Lymphocytes % (A) 15 %; MCH 28.7 pg (25.0-35.0); MCHC 33.7 g/dL (31.0-37.0); MCV 85.2 fL (80.0-100.0); Mean Platelet Volume 8.8; Monocytes # (A) 0.5 k/uL (0-1.0); Monocytes % (A) 6 %; Neutrophils # (A) 5.5 k/uL (1.3-7.7); Neutrophils % (A) 72 %; Platelet Count 193 k/uL (150-450); RBC 4.72 m/uL (3.80-5.40); RDW 13.2 % (11.5-15.5); WBC 7.6 k/uL (3.8-10.6)
[2023-04-04] MEDS: DIPH,PERTUS(ACELL)TETVAC-LF 0.5 ML VIAL IM ONE (15:13)
[2023-04-04] MEDS: ACETAMINOPHEN TAB 500 MG TAB PO STA (15:15)
[2023-04-04 15:23] LABS: ALT 20 U/L (4-34); AST 32 U/L (14-36); African American GFR (CKD) 72 (>60 ml/min/1.73 sqM); Albumin 4.2 g/dL (3.5-5.0); Alkaline Phosphatase 124 U/L (38-126); Anion Gap 6 mmol/L; Blood Urea Nitrogen 26 mg/dL (7-17); Calcium 9.2 mg/dL (8.4-10.2); Carbon Dioxide 24 mmol/L (22-30); Chloride 108 mmol/L (98-107); Glucose 103 mg/dL (74-99); Non-African American GFR(CKD) 62 (>60 ml/min/1.73 sqM); Sodium 138 mmol/L (137-145); Total Bilirubin 0.7 mg/dL (0.2-1.3); Total Protein 6.9 g/dL (6.3-8.2)
[2023-04-04 15:59] LABS: Partial Thromboplastin Time 22.2 sec (22.0-30.0); Prothrombin Time 10.6 sec (10.0-12.5)
--- NOTE | 2023-04-04 16:07 | XR ---
EXAMINATION TYPE: XR wrist complete 4 views LT, XR pelvis AP view DATE OF EXAM: 04/04/2023 COMPARISON: NONE HISTORY: 73-year-old female pain after fall FINDINGS: Wrist: Osteopenia. Severe degenerative change first CMC joint and moderate to severe at the triscaphe joint. There is an impacted transverse distal radial metaphyseal fracture with mild dorsal angulation and a ssociated soft tissue swelling. Pelvis: External rotation of the hips during imaging limits visualization of the lower femoral neck regions. Mild degenerative joint space narrowing left hip. Overall limitations due to osteopenia. No displaced fracture is seen. IMPRESSION: 1. Wrist: Colles' fracture distal radial metaphysis with mild dorsal angulation. Associated soft tiss ue swelling. Severe osteoarthritic change at the base of the thumb. 2. Pelvis: Limited by external rotation of the hips and osteopenia. No displaced fracture seen.
--- NOTE | 2023-04-04 16:52 | XR ---
EXAMINATION: XR chest 2V: 04/04/2023 4:03 PM CLINICAL INDICATION: fall TECHNIQUE: AP and lateral views COMPARISON: 02/11/2018 FINDINGS: There is no displaced rib fracture or other fracture. No pneumothorax or pleural effusion. The lungs are clear. The cardiac silhouette appears borderline enlarged, stable. The remainder of the mediastinal silhouet te is stable. The soft tissues are negative for acute findings. IMPRESSION: No acute radiographic process.
--- NOTE | 2023-04-04 17:16 | CT ---
EXAMINATION TYPE: CT brain cspine wo con DATE OF EXAM: 04/04/2023 COMPARISON: 04/10/2019 HISTORY: Fell CT DLP: combined 1121.7 mGycm. Automated Exposure Control for Dose Reduction was Utilized. TECHNIQUE: CT scan of the head and cervical spine are performed without contrast. FINDINGS: There is no acute intracranial hemorrhage, mass effect, or midline shift identified no defi nite acute attenuation defect. The globes are intact. There is partial opacification of the left maxi llary sinus. Otherwise the paranasal sinuses are clear. The middle ear cavities and mastoid sinus air cells are clear. Cervical spine is visualized in its entirety from C1 through upper thoracic levels and demonstrates s atisfactory alignment without evidence of acute fracture or dislocation. The C1-C2 articulation is un remarkable. Multilevel marked cervical spondylosis changes noted. There is a conglomerate mass of mc nopathy in the left Level 2 / Level 3 position, with associated effacement of the left vallecula-piri form sinus. IMPRESSION: 1. There is no acute fracture or dislocation evident in the cervical spine. 2. No acute intracranial hemorrhage, mass effect, or midline shift is seen. Incidental finding: Massive left cervical adenopathy noted.
--- NOTE | 2023-04-04 17:26 | CT ---
EXAMINATION TYPE: CT facial bones wo con DATE OF EXAM: 04/04/2023 COMPARISON: CT 06/05/2020 HISTORY: fell CT DLP: combined 1121.7 mGycm. Automated Exposure Control for Dose Reduction was Utilized. TECHNIQUE: CT scan of the sinuses is performed without contrast, axial images are obtained, coronal r eformatted images are also reviewed. FINDINGS/IMPRESSION: Nasal bones, orbits, and bones of the paranasal sinuses are intact. Remainder of the facial skeleton is intact. The frontal sinuses, middle ear cavities, and mastoid sinus air cells are clear. There is a conglomerate mass of adenopathy in the left Level 2 / Level 3 position, with associated ef facement of the left vallecula-piriform sinus. This finding seen on the prior study. No other significant incidental findings.
[2023-04-04 18:19] VITALS: BP 137/80; PULSE 59; RESP 16
== END 2023-04-04 18:10 | disposition home or self-care (01) ==
LOC: EC 14:18
DX: S52.532A Colles' fracture of left radius, initial encounter for closed fracture (principal); S00.31XA Abrasion of nose, initial encounter; I44.7 Left bundle-branch block, unspecified; I10 Essential (primary) hypertension; Z23 Encounter for immunization; Z79.82 Long term (current) use of aspirin; Z79.899 Other long term (current) drug therapy; Z88.5 Allergy status to narcotic agent; W01.10XA Fall on same level from slipping, tripping and stumbling with subsequent striking against unspecified object, initial encounter
CPT/HCPCS: 29105; 36415; 70450; 70486; 71046; 72125; 72170; 80053; 85025; 85610; 85730; 90471; 90715; 93005; 99284

== ENCOUNTER 2023-04-06 06:07 | Emergency (ER) | payer MEDICARE ==
--- NOTE | 2023-04-06 06:36 | ED ---
General Adult HPI - General Chief complaint: Recheck/Abnormal Lab/Rx Stated complaint: Fractured left arm recheck Time Seen by Provider: 04/06/23 06:18 Source: patient, RN notes reviewed Mode of arrival: ambulatory Limitations: no limitations - History of Present Illness Initial comments: 73-year-old female presents emergency department with chief complaint of needing splint or cast on left arm. Patient had a cast placed by orthopedics s associate yesterday patient states that she woke up and the cast was off. Patient has no other complaints. - Related Data Home Medications Medication Instructions Recorded Confirmed Aspirin 81 mg PO DAILY 07/15/13 02/11/18 Metoprolol Tartrate [Lopressor] 12.5 mg PO DAILY 07/15/13 02/11/18 Ramipril 10 mg PO DAILY 07/15/13 02/11/18 hydroCHLOROthiazide [Hydrodiuril] 25 mg PO DAILY 07/15/13 02/11/18 Albuterol Inhaler [Ventolin Hfa 1 - 2 puff INHALATION RT-Q6H PRN 02/11/18 02/11/18 Inhaler] Calcium Citrate 250 mg PO BID 02/11/18 02/11/18 Cholecalciferol [Vitamin D3] 1,000 unit PO BID 02/11/18 02/11/18 Lutein 10 mg PO TUTH 02/11/18 02/11/18 Previous Rx's Medication Instructions Recorded Cephalexin [Keflex] 500 mg PO BID 20 Days #5 cap 06/05/20 Allergies Allergy/AdvReac Type Severity Reaction Status Date / Time codeine AdvReac Vomiting Verified 04/06/23 06:26 Review of Systems ROS Statement: Those systems with pertinent positive or pertinent negative responses have been documented in the HPI. ROS Other: All systems not noted in ROS Statement are negative. Past Medical History Past Medical History: Dementia, Hypertension Additional Past Medical History / Comment(s): + HEMOCCULT History of Any Multi-Drug Resistant Organisms: None Reported Past Surgical History: Orthopedic Surgery Additional Past Surgical History / Comment(s): COLONOSCOPY, ORIF LT LEG 03/2012 Past Anesthesia/Blood Transfusion Reactions: No Reported Reaction Past Psychological History: No Psychological Hx Reported Smoking Status: Never smoker Past Alcohol Use History: None Reported Past Drug Use History: None Reported - Past Family History Mother Family Medical History: Cancer General Exam Limitations: no limitations General appearance: alert, in no apparent distress Head exam: Present: atraumatic, normocephalic, normal inspection Eye exam: Present: normal appearance, PERRL, EOMI. Absent: scleral icterus, conjunctival injection, periorbital swelling ENT exam: Present: normal exam, mucous membranes moist Neck exam: Present: normal inspection. Absent: tenderness, meningismus, lymphadenopathy Respiratory exam: Present: normal lung sounds bilaterally. Absent: respiratory distress, wheezes, rales, rhonchi, stridor Extremities exam: Present: other (Mild swelling and ecchymosis left wrist) Course Vital Signs 04/06/23 06:20 Temperature 98.2 F Pulse Rate 63 Respiratory 20 Rate Blood Pressure 143/88 O2 Sat by Pulse 98 Oximetry Procedures - Orthopedic Splinting/Casting Injury #1 Side: left Upper Extremity Injury Location: short arm, wrist Upper Extremity Immobilizer: volar splint, synthetic pre-padded splint Medical Decision Making - Medical Decision Making Was pt. sent in by a medical professional or institution (, PA, WHEEL BRAIDER, urgent care, hospital, or intermediate...) When possible be specific @ -No Did you speak to anyone other than the patient for history (EMS, parent, family, police, friend...)? What history was obtained from this source @ -No Did you review nursing and triage notes (agree or disagree)? Why? @ -I reviewed and agree with nursing and triage notes Were old charts reviewed (outside hosp., previous admission, EMS record, old EKG, old radiological studies, urgent care reports/EKG's, intermediate records)? Report findings @ -He had recent x-rays Differential Diagnosis (chest pain, altered mental status, abdominal pain women, abdominal pain men, vaginal bleeding, weakness, fever, dyspnea, syncope, headache, dizziness, GI bleed, back pain, seizure, CVA, palpatations, mental health, musculoskeletal)? @ -Splint replacement, wrist fracture EKG interpreted by me (3pts min.). @ -None X-rays interpreted by me (1pt min.). @ -None done CT interpreted by me (1pt min.). @ -None done U/S interpreted by me (1pt. min.). @ -None done What testing was considered but not performed or refused? (CT, X-rays, U/S, labs)? Why? @ -None What meds were considered but not given or refused? Why? @ -None Did you discuss the management of the patient with other professionals (professionals i.e. , PA, WHEEL BRAIDER, lab, RT, psych nurse, social media marketer, tracer powder blender, teacher, press officer, correctional case records supervisor)? Give summary @ -No Was smoking cessation discussed for >3mins.? @ -No Was critical care preformed (if so, how long)? @ -No Were there social determinants of health that impacted care today? How? (Homelessness, low income, unemployed, alcoholism, drug addiction, transportation, low edu. Level, literacy, decrease access to med. care, [facility] [facility], rehab)? @ -No Was there de-escalation of care discussed even if they declined (Discuss DNR or withdrawal of care, Hospice)? DNR status @ -No What co-morbidities impacted this encounter? (DM, HTN, Smoking, COPD, CAD, Cancer, CVA, ARF, Chemo, Hep., AIDS, mental health diagnosis, sleep apnea, morbid obesity)? @ -None Was patient admitted / discharged? Hospital course, mention meds given and route, prescriptions, significant lab abnormalities, going to OR and other pertinent info. @ -Discharge OCL splint was applied she is advised to follow-up on Saturday for cast replacement Undiagnosed new problem with uncertain prognosis? @ -No Drug Therapy requiring intensive monitoring for toxicity (Heparin, Nitro, Insulin, Cardizem)? @ -No Were any procedures done? @ -No Diagnosis/symptom? @ -Left wrist fracture, splint Acute, or Chronic, or Acute on Chronic? @ -Acute Uncomplicated (without systemic symptoms) or Complicated (systemic symptoms)? @ -Uncomplicated Side effects of treatment? @ -No Exacerbation, Progression, or Severe Exacerbation? @ -No Poses a threat to life or bodily function? How? (Chest pain, [place], [place], pneumonia, PE, COPD, DKA, ARF, appy, cholecystitis, CVA, Diverticulitis, Homicidal, Suicidal, threat to staff... and all critical care pts) @ -No Disposition Clinical Impression: Left wrist fracture Disposition: HOME SELF-CARE Condition: Stable Instructions (If sedation given, give patient instructions): Wrist Fracture in Adults (ED) Additional Instructions: Please return to the Emergency Department if symptoms worsen or any other concerns. Is patient prescribed a controlled substance at d/c from ED?: No Referrals: Martinez Cook MD [Primary Care Provider] - 1-2 days Time of Disposition: 06:36
[2023-04-06 06:53] VITALS: BP 143/88; PULSE 63; RESP 20; TEMP 98.2
== END 2023-04-06 06:42 | disposition home or self-care (01) ==
LOC: EC 06:07
DX: S62.102A Fracture of unspecified carpal bone, left wrist, initial encounter for closed fracture (principal); I10 Essential (primary) hypertension; F03.90 Unspecified dementia, unspecified severity, without behavioral disturbance, psychotic disturbance, mood disturbance, and anxiety; Z79.82 Long term (current) use of aspirin; Z79.899 Other long term (current) drug therapy; Z88.5 Allergy status to narcotic agent; W19.XXXA Unspecified fall, initial encounter
CPT/HCPCS: 29125; 99283

== ENCOUNTER 2023-04-18 17:54 | Emergency (ER) | payer MEDICARE ==
--- NOTE | 2023-04-18 18:26 | ED ---
Extremity Problem HPI - General Source: family, RN notes reviewed, old records reviewed Mode of arrival: ambulatory Limitations: no limitations <Bernadette Noriega - Last Filed: 04/18/23 18:25> <Ethel Muse - Last Filed: 04/19/23 00:32> - General Stated complaint: L wrist needs cast Time Seen by Provider: 04/18/23 18:25 - History of Present Illness Initial comments: Patient is a 73-year-old female presented to ER with chief complaint of needing left wrist splinted. Patient had hard cast placed by Dr. Lacey. Family reports she somehow got it off. (Bernadette Noriega) 73-year-old female with a history of dementia presents to the emergency department as she removed her cast. She has a distal radius fracture, cast was placed by Dr. Bains' office. She is scheduled for an appointment on Saturday. Her notes that she is supposed to have a cast on for 4 to 6 weeks. She has currently had it on for around 2 weeks. This is the second time she has removed it. (Ethel Muse) - Related Data Home Medications Medication Instructions Recorded Confirmed Aspirin 81 mg PO DAILY 07/15/13 02/11/18 Metoprolol Tartrate [Lopressor] 12.5 mg PO DAILY 07/15/13 02/11/18 Ramipril 10 mg PO DAILY 07/15/13 02/11/18 hydroCHLOROthiazide [Hydrodiuril] 25 mg PO DAILY 07/15/13 02/11/18 Albuterol Inhaler [Ventolin Hfa 1 - 2 puff INHALATION RT-Q6H PRN 02/11/18 02/11/18 Inhaler] Calcium Citrate 250 mg PO BID 02/11/18 02/11/18 Cholecalciferol [Vitamin D3] 1,000 unit PO BID 02/11/18 02/11/18 Lutein 10 mg PO TUTH 02/11/18 02/11/18 Previous Rx's Medication Instructions Recorded Cephalexin [Keflex] 500 mg PO BID 20 Days #5 cap 06/05/20 Allergies Allergy/AdvReac Type Severity Reaction Status Date / Time codeine AdvReac Vomiting Verified 04/18/23 19:02 Review of Systems ROS Other: All systems not noted in ROS Statement are negative. <Bernadette Noriega - Last Filed: 04/18/23 18:25> ROS Other: All systems not noted in ROS Statement are negative. <Ethel Muse - Last Filed: 04/19/23 00:32> ROS Statement: Those systems with pertinent positive or pertinent negative responses have been documented in the HPI. Past Medical History Past Medical History: Dementia, Hypertension Additional Past Medical History / Comment(s): + HEMOCCULT History of Any Multi-Drug Resistant Organisms: None Reported Past Surgical History: Orthopedic Surgery Additional Past Surgical History / Comment(s): COLONOSCOPY, ORIF LT LEG 03/2012 Past Anesthesia/Blood Transfusion Reactions: No Reported Reaction Past Psychological History: No Psychological Hx Reported Smoking Status: Never smoker Past Alcohol Use History: None Reported Past Drug Use History: None Reported - Past Family History Mother Family Medical History: Cancer <Bernadette Noriega - Last Filed: 04/18/23 18:25> General Exam <Bernadette Noriega - Last Filed: 04/18/23 18:25> Limitations: no limitations General appearance: alert, in no apparent distress Head exam: Present: atraumatic, normocephalic, normal inspection Eye exam: Present: normal appearance, PERRL, EOMI. Absent: scleral icterus, conjunctival injection, periorbital swelling ENT exam: Present: normal exam, mucous membranes moist Extremities exam: Present: tenderness, normal capillary refill, other (Radial pulses 2+, swelling to the left wrist). Absent: full ROM <Ethel Muse - Last Filed: 04/19/23 00:32> - General Exam Comments Initial Comments: Visual Physical Exam Vital signs reviewed General: Well-appearing, nontoxic, no acute distress. Head: Normocephalic, atraumatic Eyes: PERRLA, EOMI ENT: Airway patent Chest: Nonlabored breathing Skin: No visual rash, normal skin tone Neuro: Alert and oriented 3 Musculoskeletal: Mild edema to left hand (Bernadette Noriega) Course Vital Signs 04/18/23 04/18/23 18:59 21:14 Temperature 98.4 F 98.3 F Pulse Rate 66 87 Respiratory 18 16 Rate Blood Pressure 151/83 144/86 O2 Sat by Pulse 96 99 Oximetry Medical Decision Making <Bernadette Noriega - Last Filed: 04/18/23 18:25> <Ethel Muse - Last Filed: 04/19/23 00:32> - Medical Decision Making I performed the quick note portion of this chart. Electronically signed by Bernadette Noriega PA-C (Bernadette Noriega) Was pt. sent in by a medical professional or institution (PEARL Armstrong, JEWEL FLAT SURFACER, urgent care, hospital, or retirement...) When possible be specific @ -No Did you speak to anyone other than the patient for history (EMS, parent, family, police, friend...)? What history was obtained from this source @ -No Did you review nursing and triage notes (agree or disagree)? Why? @ -I reviewed and agree with nursing and triage notes Were old charts reviewed (outside hosp., previous admission, EMS record, old EKG, old radiological studies, urgent care reports/EKG's, retirement records)? Report findings @ -No old charts were reviewed Differential Diagnosis (chest pain, altered mental status, abdominal pain women, abdominal pain men, vaginal bleeding, weakness, fever, dyspnea, syncope, h eadache, dizziness, GI bleed, back pain, seizure, CVA, palpatations, mental health, musculoskeletal)? @ -Differential Musculoskeletal Muscular strain, contusion, ligament sprain, fracture, arthritis, septic arthritis, bursitis, cellulitis, muscle spasm, nerve compression, DVT, arterial occlusion, herpes zoster, electrolyte abnormality, tumor.... This is not meant to be in all inclusive list EKG interpreted by me (3pts min.). @ -None X-rays interpreted by me (1pt min.). @ -X-ray of the left wrist shows impacted distal radius fracture present on prior x-rays CT interpreted by me (1pt min.). @ -None done U/S interpreted by me (1pt. min.). @ -None done What testing was considered but not performed or refused? (CT, X-rays, U/S, labs)? Why? @ -None What meds were considered but not given or refused? Why? @ -None Did you discuss the management of the patient with other professionals (professionals i.e. PEARL Armstrong, JEWEL FLAT SURFACER, lab, RT, psych nurse, hospice social worker, machine helper, teacher, global chief creative officer, geriatric case manager)? Give summary @ -No Was smoking cessation discussed for >3mins.? @ -No Was critical care preformed (if so, how long)? @ -No Were there social determinants of health that impacted care today? How? (Homelessness, low income, unemployed, alcoholism, drug addiction, transportation, low edu. Level, literacy, decrease access to med. care, [facility], rehab)? @ -No Was there de-escalation of care discussed even if they declined (Discuss DNR or withdrawal of care, Hospice)? DNR status @ -No What co-morbidities impacted this encounter? (DM, HTN, Smoking, COPD, CAD, Cancer, CVA, ARF, Chemo, Hep., AIDS, mental health diagnosis, sleep apnea, morbid obesity)? @ -None Was patient admitted / discharged? Hospital course, mention meds given and route, prescriptions, significant lab abnormalities, going to OR and other pertinent info. @ -Discharge. Patient presented to the emergency department for resplinting. She removed her cast at home. She has a history of dementia and has difficulty leaving the cast on. Patient follows with Dr. Bains for this fracture that he has. X-rays obtained which show a distal radius fracture with callus formation. Patient was replaced in a volar splint and wrapped well, neurovascular status intact post splint. Patient and family to call orthopedics tomorrow for recasting. Patient family understanding agreeable plan. Patient stable at time discharge. Case discussed with Dr. Trammell. Undiagnosed new problem with uncertain prognosis? @ -No Drug Therapy requiring intensive monitoring for toxicity (Heparin, Nitro, Insulin, Cardizem)? @ -No Were any procedures done? @ -Splinting Diagnosis/symptom? @ -Distal radius fracture Acute, or Chronic, or Acute on Chronic? @ -Acute Uncomplicated (without systemic symptoms) or Complicated (systemic symptoms)? @ -Uncomplicated Side effects of treatment? @ -No Exacerbation, Progression, or Severe Exacerbation? @ -No Poses a threat to life or bodily function? How? (Chest pain, [place], [place], pneumonia, PE, COPD, DKA, ARF, appy, cholecystitis, CVA, Diverticulitis, Homicidal, Suicidal, threat to staff... and all critical care pts) @ -No (Ethel Muse) Disposition <Bernadette Noriega - Last Filed: 04/18/23 18:25> Is patient prescribed a controlled substance at d/c from ED?: No <Ethel Muse - Last Filed: 04/19/23 00:32> Clinical Impression: Distal radius fracture, left, Colles' fracture Disposition: HOME SELF-CARE Condition: Stable Additional Instructions: Please follow up with Dr. Bains. Return to the emergency department for new or worsening symptoms. Referrals: Martinez Cook MD [Primary Care Provider] - 1-2 days
--- NOTE | 2023-04-18 20:34 | XR ---
PROCEDURE: XR wrist limited LT - 2V DATE AND TIME: 04/18/2023 7:55 PM CLINICAL INDICATION: PHH; radius fx, removed cast TECHNIQUE: Department protocol COMPARISON: 04/04/2023 FINDINGS/IMPRESSION: The previously seen impacted transverse distal radial metaphyseal fracture with mild dorsal angulatio n shows interval callus formation. Alignment pattern documented. Severe and exuberant osteophytosis changes of the first ASSISTED articulation redemonstrated.
[2023-04-18 21:30] VITALS: BP 144/86; PULSE 87; RESP 16; TEMP 98.3
== END 2023-04-18 21:15 | disposition home or self-care (01) ==
LOC: EC 17:54
DX: S52.592A Other fractures of lower end of left radius, initial encounter for closed fracture (principal); I10 Essential (primary) hypertension; Z79.82 Long term (current) use of aspirin; Z79.899 Other long term (current) drug therapy; Z88.5 Allergy status to narcotic agent; X58.XXXA Exposure to other specified factors, initial encounter
CPT/HCPCS: 99283

== ENCOUNTER 2023-04-22 09:35 | Observation (INO) | payer MEDICARE ==
[2023-04-22 09:51] LABS: Glucose,Whole Blood 105 mg/dL (70-110)
[2023-04-22] MEDS: SODIUM CHLORIDE 0.9% 500 ML 500 ML IV ONE (10:24)
[2023-04-22 10:31] LABS: Basophils % (A) 0 %; Eosinophils # (A) 0.3 k/uL (0-0.7); Eosinophils % (A) 3 %; HCT 38.8 % (34.0-46.0); HGB 13.1 gm/dL (11.4-16.0); Lymphocytes # (A) 0.8 k/uL (1.0-4.8); Lymphocytes % (A) 8 %; MCH 28.9 pg (25.0-35.0); MCHC 33.7 g/dL (31.0-37.0); MCV 85.7 fL (80.0-100.0); Monocytes # (A) 0.6 k/uL (0-1.0); Monocytes % (A) 6 %; Neutrophils # (A) 8.2 k/uL (1.3-7.7); Neutrophils % (A) 82 %; Platelet Count 223 k/uL (150-450); RBC 4.53 m/uL (3.80-5.40); RDW 13.2 % (11.5-15.5)
[2023-04-22 10:40] LABS: Prothrombin Time 10.7 sec (10.0-12.5)
[2023-04-22 10:50] LABS: Lactic Acid, Venous 1.1 mmol/L (0.7-2.0)
[2023-04-22 10:51] LABS: ALT 23 U/L (4-34); AST 39 U/L (14-36); African American GFR (CKD) 87 (>60 ml/min/1.73 sqM); Albumin 4.5 g/dL (3.5-5.0); Alkaline Phosphatase 111 U/L (38-126); Anion Gap 12 mmol/L; Blood Urea Nitrogen 22 mg/dL (7-17); Calcium 9.9 mg/dL (8.4-10.2); Carbon Dioxide 28 mmol/L (22-30); Chloride 100 mmol/L (98-107); Glucose 112 mg/dL (74-99); Non-African American GFR(CKD) 75 (>60 ml/min/1.73 sqM); Sodium 140 mmol/L (137-145); Total Bilirubin 1.3 mg/dL (0.2-1.3); Total Protein 7.6 g/dL (6.3-8.2)
[2023-04-22 10:59] LABS: NT-Pro-B-Type Natriuretic Pept 136 pg/mL
--- NOTE | 2023-04-22 11:10 | CT ---
EXAMINATION TYPE: CT brain wo con DATE OF EXAM: 04/22/2023 COMPARISON: 04/04/2023. HISTORY: Altered mental status. CT DLP: 1153.8 mGycm Automated exposure control for dose reduction was used. FINDINGS: There is no acute intracranial hemorrhage, mass, mass effect, midline shift, extra-axial fluid collec tion or hydrocephalus. There is hypoattenuation within the periventricular, subcortical and deep white matter which likely r elates to chronic ischemic small vessel change. No acute major vessel infarct is clearly identified o n the scope of this examination. The visualized paranasal sinuses and mastoid air cells are clear. IMPRESSION: NO ACUTE INTRACRANIAL PROCESS. CHRONIC CHANGES ABOVE.
[2023-04-22 11:26] LABS: Appearance,Urine Clear (Clear); Bilirubin,Urine Negative (Negative); Blood,Urine Trace (Negative); Color,Urine Colorless; Glucose,Urine (UA) Negative (Negative); Ketones,Urine Negative (Negative); Leukocyte Esterase,Urine Trace (Negative); Mucus,Urine Rare /hpf; Nitrite,Urine Negative (Negative); Protein,Urine Negative (Negative); RBC,Urine 2 /hpf (0-5); Specific Gravity,Urine 1.013 (1.001-1.035); Urobilinogen,Urine <2.0 mg/dL (<2.0); WBC,Urine 1 /hpf (0-5)
[2023-04-22 11:32] LABS: Amphetamine Screen,Urine Not Detected (NotDetected); Barbiturate Screen,Urine Not Detected (NotDetected); Benzodiazepines Screen,Urine Not Detected (NotDetected); Cocaine Screen,Urine Not Detected (NotDetected); Methadone Screen, Urine Not Detected (NotDetected); Opiate Screen,Urine Not Detected (NotDetected); Oxycodone Screen, Urine Not Detected (NotDetected); Phencyclidine Screen,Urine Not Detected (NotDetected); Tricyclic Antidepressant,Urine Not Detected (NotDetected); Urn Cannabinoid Scrn Not Detected (NotDetected)
--- NOTE | 2023-04-22 11:52 | XR ---
EXAMINATION TYPE: XR chest 2V DATE OF EXAM: 04/22/2023 COMPARISON: 04/04/2023 HISTORY: 73-year-old female confusion, altered mental status TECHNIQUE: AP and lateral views FINDINGS: Heart mild to moderately enlarged. Mild interstitial prominence may in part be technical due to james ble examination body habitus. No consolidation or pleural effusion seen. IMPRESSION: [id number] cardiomegaly. Possible underlying COPD. No definite acute process.
[2023-04-22] MEDS ORDERED: NALOXONE 0.4 MG/ML 1 ML VIAL IV PRN (12:43)
--- NOTE | 2023-04-22 12:43 | ED ---
General Adult HPI - General Chief complaint: Neuro Symptoms/Deficit Stated complaint: Lethargic Time Seen by Provider: 04/22/23 09:59 Source: patient, family, RN notes reviewed, old records reviewed Mode of arrival: wheelchair Limitations: no limitations - History of Present Illness Initial comments: Patient is a 73-year-old female who presents emergency department complaining of altered mentation. Has a history of dementia typically ANO x 1. Patient presents with her who is her primary caregiver. Has a recent left wrist fracture. Has been more weak over the last few days with no obvious focal deficits other than generalized weakness and lack of appetite, eating, drinking. Patient is unable provide much of the history. No obvious sick symptoms for patient's . No obvious new medications either. Presents for further evaluation at this time. No trauma. Patient is not on blood thinners. - Related Data Home Medications Medication Instructions Recorded Confirmed Aspirin 81 mg PO DAILY 07/15/13 04/22/23 Ramipril 10 mg PO BID 07/15/13 04/22/23 hydroCHLOROthiazide [Hydrodiuril] 25 mg PO DAILY 07/15/13 04/22/23 Calcium Citrate 250 mg PO BID 02/11/18 04/22/23 Atorvastatin [Lipitor] 20 mg PO HS 04/22/23 04/22/23 Cholecalciferol [Vitamin D3 (25 25 mcg PO DAILY 04/22/23 04/22/23 Mcg = 1000 Iu)] Cyanocobalamin (Vitamin B-12) 5,000 mcg PO DAILY 04/22/23 04/22/23 [Vitamin B-12] Escitalopram [Lexapro] 20 mg PO DAILY 04/22/23 04/22/23 Famotidine [Pepcid] 20 mg PO BID 04/22/23 04/22/23 Memantine [Namenda] 10 mg PO BID 04/22/23 04/22/23 Metoprolol Succinate (ER) [Toprol 12.5 mg PO DAILY 04/22/23 04/22/23 Xl] amLODIPine [Norvasc] 10 mg PO DAILY 04/22/23 04/22/23 risperiDONE [RisperDAL] 0.25 mg PO HS 04/22/23 04/22/23 Allergies Allergy/AdvReac Type Severity Reaction Status Date / Time codeine AdvReac Vomiting Verified 04/22/23 12:54 Review of Systems ROS Statement: Those systems with pertinent positive or pertinent negative responses have been documented in the HPI. ROS Other: All systems not noted in ROS Statement are negative. Past Medical History Past Medical History: Dementia, Hypertension Additional Past Medical History / Comment(s): + HEMOCCULT History of Any Multi-Drug Resistant Organisms: None Reported Past Surgical History: Orthopedic Surgery Additional Past Surgical History / Comment(s): COLONOSCOPY, ORIF LT LEG 03/2012 Past Anesthesia/Blood Transfusion Reactions: No Reported Reaction Past Psychological History: No Psychological Hx Reported Smoking Status: Never smoker Past Alcohol Use History: None Reported Past Drug Use History: None Reported - Past Family History Mother Family Medical History: Cancer General Exam - General Exam Comments Initial Comments: General: Appears in no acute distress. HEAD: Normal with no signs of head trauma. EYES: PERRLA, EOMI, conjunctiva normal, no discharge. Pulls are 3 mm and equal bilaterally. ENT: Hearing grossly intact, normal oropharynx. Mucous membranes. RESPIRATORY: Clear breath sounds bilaterally. No wheezes, rales, or rhonchi. C/V: Regular rate and rhythm. S1 and S2 auscultated, no edema, peripheral pulses 2+ and intact throughout ABD: Abd is soft, nontender, nondistended EXT: Normal range of motion, no obvious deformity SKIN: No rashes or lesions observed on exposed skin. NEURO: Alert and oriented x 0-1 at best. No focal deficits appreciated however it is difficult secondary to patient's baseline mentation. Seems to be generally weak. Limitations: no limitations Course Vital Signs 04/22/23 04/22/23 04/22/23 09:47 11:19 12:03 Temperature 97 F L Pulse Rate 77 80 76 Respiratory 20 22 20 Rate Blood Pressure 135/79 141/81 130/71 O2 Sat by Pulse 97 95 95 Oximetry 04/22/23 13:27 Temperature Pulse Rate 84 Respiratory 20 Rate Blood Pressure 130/68 O2 Sat by Pulse 96 Oximetry Medical Decision Making - Medical Decision Making Was pt. sent in by a medical professional or institution (, PA, LOCAL AREA NETWORK ADMINISTRATOR, urgent care, hospital, or assisted...) When possible be specific @ -No Did you speak to anyone other than the patient for history (EMS, parent, family, police, friend...)? What history was obtained from this source @ -Patient's is the primary historian. Did you review nursing and triage notes (agree or disagree)? Why? @ -I reviewed and agree with nursing and triage notes Were old charts reviewed (outside hosp., previous admission, EMS record, old EKG, old radiological studies, urgent care reports/EKG's, assisted records)? Report findings @ -Old charts reviewed. Differential Diagnosis (chest pain, altered mental status, abdominal pain women, abdominal pain men, vaginal bleeding, weakness, fever, dyspnea, syncope, headache, dizziness, GI bleed, back pain, seizure, CVA, palpatations, mental health, musculoskeletal)? @ -Differential Altered Mental Status: Hypoglycemia, DKA, hypercapnia, ETOH, overdose, CO poisoning, trauma, myxedema coma, HTN encephalopathy, infection, encephalitis, psychosis, intercranial hemorrhage, hepatic encephalopathy, meningitis, CVA, this is not meant to be an all-inclusive list EKG interpreted by me (3pts min.). @ -As above X-rays interpreted by me (1pt min.). @ -Chest x-ray shows no obvious acute cardiopulmonary process. CT interpreted by me (1pt min.). @ -CT brain reveals no obvious acute intracranial process. U/S interpreted by me (1pt. min.). @ -None done What testing was considered but not performed or refused? (CT, X-rays, U/S, labs)? Why? @ -None What meds were considered but not given or refused? Why? @ -None Did you discuss the management of the patient with other professionals (professionals i.e. , PA, LOCAL AREA NETWORK ADMINISTRATOR, lab, RT, psych nurse, clinical social work aide, informatica mdm developer, teacher, juvenile detention officer, employment case manager)? Give summary @ -No Was smoking cessation discussed for >3mins.? @ -No Was critical care preformed (if so, how long)? @ -No Were there social determinants of health that impacted care today? How? (Homelessness, low income, unemployed, alcoholism, drug addiction, transportation, low edu. Level, literacy, decrease access to med. care, skilled nursing, rehab)? @ -No Was there de-escalation of care discussed even if they declined (Discuss DNR or withdrawal of care, Hospice)? DNR status @ -No What co-morbidities impacted this encounter? (DM, HTN, Smoking, COPD, CAD, Cancer, CVA, ARF, Chemo, Hep., AIDS, mental health diagnosis, sleep apnea, morbid obesity)? @ -Dementia Was patient admitted / discharged? Hospital course, mention meds given and route, prescriptions, significant lab abnormalities, going to OR and other pertinent info. @ -Based on patient's presentation and physical exam, presents with altered me ntation in the setting of dementia. Is below her baseline. Does have a known left wrist fracture with cast on this arm but otherwise has no other obvious findings on workup or exam other than generalized weakness. Vital signs are within acceptable limits. We will obtain generalized workup. Patient's in agreement this plan. EKG shows chronic left bundle branch block but no other acute findings. Labs are also unremarkable. This includes an undetectable troponin. No evidence of acute infection. Vital signs within acceptable limits. Chest x-ray unremarkable. CT brain unremarkable. Patient was symptomatically treated with IV fluids as clinically she appears dehydrated. At this time, I updated the patient's . I do recommend admission at this time. He was in agreement this plan. Patient will be admitted for neurology evaluation as patient remains below her baseline mentation. I spoke with the admitting team, Dr. Vance of [facility] who accepted the admission. Undiagnosed new problem with uncertain prognosis? @ -No Drug Therapy requiring intensive monitoring for toxicity (Heparin, Nitro, Insulin, Cardizem)? @ -No Were any procedures done? @ -No Diagnosis/symptom? @ -Altered mental status, dehydration Acute, or Chronic, or Acute on Chronic? @ -Acute Uncomplicated (without systemic symptoms) or Complicated (systemic symptoms)? @ -Complicated Side effects of treatment? @ -No Exacerbation, Progression, or Severe Exacerbation? @ -No Poses a threat to life or bodily function? How? (Chest pain, USA, ID, pneumonia, PE, COPD, DKA, ARF, appy, cholecystitis, CVA, Diverticulitis, Homicidal, Suicidal, threat to staff... and all critical care pts) @ -Yes - Lab Data Result diagrams: 04/22/23 10:16 04/22/23 10:16 Lab Results 04/22/23 04/22/23 04/22/23 Range/Units 09:49 10:16 10:16 WBC 10.0 (3.8-10.6) k/uL RBC 4.53 (3.80-5.40) m/uL Hgb 13.1 (11.4-16.0) gm/dL Hct 38.8 (34.0-46.0) % MCV 85.7 (80.0-100.0) fL MCH 28.9 (25.0-35.0) pg MCHC 33.7 (31.0-37.0) g/dL RDW 13.2 (11.5-15.5) % Plt Count 223 (150-450) k/uL MPV 9.0 Neutrophils % 82 % Lymphocytes % 8 % Monocytes % 6 % Eosinophils % 3 % Basophils % 0 % Neutrophils # 8.2 H (1.3-7.7) k/uL Lymphocytes # 0.8 L (1.0-4.8) k/uL Monocytes # 0.6 (0-1.0) k/uL Eosinophils # 0.3 (0-0.7) k/uL Basophils # 0.0 (0-0.2) k/uL PT 10.7 (10.0-12.5) sec INR 1.0 (<1.2) APTT 25.0 (22.0-30.0) sec Sodium (137-145) mmol/L Potassium (3.5-5.1) mmol/L Chloride (98-107) mmol/L Carbon Dioxide (22-30) mmol/L Anion Gap mmol/L BUN (7-17) mg/dL Creatinine (0.52-1.04) mg/dL Est GFR (CKD-EPI)AfAm (>60 ml/min/1.73 sqM) Est GFR (CKD-EPI)NonAf (>60 ml/min/1.73 sqM) Glucose (74-99) mg/dL POC Glucose (mg/dL) 105 (70-110) mg/dL POC Glu Assurance Engineer ID Shelly, Tj Plasma Lactic Acid Corky (0.7-2.0) mmol/L Calcium (8.4-10.2) mg/dL Total Bilirubin (0.2-1.3) mg/dL AST (14-36) U/L ALT (4-34) U/L Alkaline Phosphatase (38-126) U/L Ammonia (<30) umol/L Troponin I (0.000-0.034) ng/mL NT-Pro-B Natriuret Pep pg/mL Total Protein (6.3-8.2) g/dL Albumin (3.5-5.0) g/dL Urine Color Urine Appearance (Clear) Urine pH (5.0-8.0) Ur Specific [place] (1.001-1.035) Urine Protein (Negative) Urine Glucose (UA) (Negative) Urine Ketones (Negative) Urine Blood (Negative) Urine Nitrite (Negative) Urine Bilirubin (Negative) Urine Urobilinogen (<2.0) mg/dL Ur Leukocyte Esterase (Negative) Urine RBC (0-5) /hpf Urine WBC (0-5) /hpf Urine Mucus (None) /hpf Urine Opiates Screen (NotDetected) Ur Oxycodone Screen (NotDetected) Urine Methadone Screen (NotDetected) Ur Barbiturates Screen (NotDetected) U Tricyclic Antidepress (NotDetected) Ur Phencyclidine Scrn (NotDetected) Ur Amphetamines Screen (NotDetected) U Methamphetamines Scrn (NotDetected) U Benzodiazepines Scrn (NotDetected) Urine Cocaine Screen (NotDetected) U Marijuana (THC) Screen (NotDetected) Influenza Type A (PCR) (Not Detectd) Influenza Type B (PCR) (Not Detectd) RSV (PCR) (Not Detectd) SARS-CoV-2 (PCR) (Not Detectd) 04/22/23 04/22/23 04/22/23 Range/Units 10:16 10:16 10:16 WBC (3.8-10.6) k/uL RBC (3.80-5.40) m/uL Hgb (11.4-16.0) gm/dL Hct (34.0-46.0) % MCV (80.0-100.0) fL MCH (25.0-35.0) pg MCHC (31.0-37.0) g/dL RDW (11.5-15.5) % Plt Count (150-450) k/uL MPV Neutrophils % % Lymphocytes % % Monocytes % % Eosinophils % % Basophils % % Neutrophils # (1.3-7.7) k/uL Lymphocytes # (1.0-4.8) k/uL Monocytes # (0-1.0) k/uL Eosinophils # (0-0.7) k/uL Basophils # (0-0.2) k/uL PT (10.0-12.5) sec INR (<1.2) APTT (22.0-30.0) sec Sodium 140 (137-145) mmol/L Potassium 4.0 (3.5-5.1) mmol/L Chloride 100 (98-107) mmol/L Carbon Dioxide 28 (22-30) mmol/L Anion Gap 12 mmol/L BUN 22 H (7-17) mg/dL Creatinine 0.79 (0.52-1.04) mg/dL Est GFR (CKD-EPI)AfAm 87 (>60 ml/min/1.73 sqM) Est GFR (CKD-EPI)NonAf 75 (>60 ml/min/1.73 sqM) Glucose 112 H (74-99) mg/dL POC Glucose (mg/dL) (70-110) mg/dL POC Glu Assurance Engineer ID Plasma Lactic Acid Corky 1.1 (0.7-2.0) mmol/L Calcium 9.9 (8.4-10.2) mg/dL Total Bilirubin 1.3 (0.2-1.3) mg/dL AST 39 H (14-36) U/L ALT 23 (4-34) U/L Alkaline Phosphatase 111 (38-126) U/L Ammonia 10 (<30) umol/L Troponin I (0.000-0.034) ng/mL NT-Pro-B Natriuret Pep 136 pg/mL Total Protein 7.6 (6.3-8.2) g/dL Albumin 4.5 (3.5-5.0) g/dL Urine Color Colorless Urine Appearance Clear (Clear) Urine pH 6.0 (5.0-8.0) Ur Specific [place] 1.013 (1.001-1.035) Urine Protein Negative (Negative) Urine Glucose (UA) Negative (Negative) Urine Ketones Negative (Negative) Urine Blood Trace H (Negative) Urine Nitrite Negative (Negative) Urine Bilirubin Negative (Negative) Urine Urobilinogen <2.0 (<2.0) mg/dL Ur Leukocyte Esterase Trace H (Negative) Urine RBC 2 (0-5) /hpf Urine WBC 1 (0-5) /hpf Urine Mucus Rare H (None) /hpf Urine Opiates Screen Not Detected (NotDetected) Ur Oxycodone Screen Not Detected (NotDetected) Urine Methadone Screen Not Detected (NotDetected) Ur Barbiturates Screen Not Detected (NotDetected) U Tricyclic Antidepress Not Detected (NotDetected) Ur Phencyclidine Scrn Not Detected (NotDetected) Ur Amphetamines Screen Not Detected (NotDetected) U Methamphetamines Scrn Not Detected (NotDetected) U Benzodiazepines Scrn Not Detected (NotDetected) Urine Cocaine Screen Not Detected (NotDetected) U Marijuana (THC) Screen Not Detected (NotDetected) Influenza Type A (PCR) (Not Detectd) Influenza Type B (PCR) (Not Detectd) RSV (PCR) (Not Detectd) SARS-CoV-2 (PCR) (Not Detectd) 04/22/23 04/22/23 Range/Units 10:16 10:16 WBC (3.8-10.6) k/uL RBC (3.80-5.40) m/uL Hgb (11.4-16.0) gm/dL Hct (34.0-46.0) % MCV (80.0-100.0) fL MCH (25.0-35.0) pg MCHC (31.0-37.0) g/dL RDW (11.5-15.5) % Plt Count (150-450) k/uL MPV Neutrophils % % Lymphocytes % % Monocytes % % Eosinophils % % Basophils % % Neutrophils # (1.3-7.7) k/uL Lymphocytes # (1.0-4.8) k/uL Monocytes # (0-1.0) k/uL Eosinophils # (0-0.7) k/uL Basophils # (0-0.2) k/uL PT (10.0-12.5) sec INR (<1.2) APTT (22.0-30.0) sec Sodium (137-145) mmol/L Potassium (3.5-5.1) mmol/L Chloride (98-107) mmol/L Carbon Dioxide (22-30) mmol/L Anion Gap mmol/L BUN (7-17) mg/dL Creatinine (0.52-1.04) mg/dL Est GFR (CKD-EPI)AfAm (>60 ml/min/1.73 sqM) Est GFR (CKD-EPI)NonAf (>60 ml/min/1.73 sqM) Glucose (74-99) mg/dL POC Glucose (mg/dL) (70-110) mg/dL POC Glu Assurance Engineer ID Plasma Lactic Acid Corky (0.7-2.0) mmol/L Calcium (8.4-10.2) mg/dL Total Bilirubin (0.2-1.3) mg/dL AST (14-36) U/L ALT (4-34) U/L Alkaline Phosphatase (38-126) U/L Ammonia (<30) umol/L Troponin I <0.012 (0.000-0.034) ng/mL NT-Pro-B Natriuret Pep pg/mL Total Protein (6.3-8.2) g/dL Albumin (3.5-5.0) g/dL Urine Color Urine Appearance (Clear) Urine pH (5.0-8.0) Ur Specific [place] (1.001-1.035) Urine Protein (Negative) Urine Glucose (UA) (Negative) Urine Ketones (Negative) Urine Blood (Negative) Urine Nitrite (Negative) Urine Bilirubin (Negative) Urine Urobilinogen (<2.0) mg/dL Ur Leukocyte Esterase (Negative) Urine RBC (0-5) /hpf Urine WBC (0-5) /hpf Urine Mucus (None) /hpf Urine Opiates Screen (NotDetected) Ur Oxycodone Screen (NotDetected) Urine Methadone Screen (NotDetected) Ur Barbiturates Screen (NotDetected) U Tricyclic Antidepress (NotDetected) Ur Phencyclidine Scrn (NotDetected) Ur Amphetamines Screen (NotDetected) U Methamphetamines Scrn (NotDetected) U Benzodiazepines Scrn (NotDetected) Urine Cocaine Screen (NotDetected) U Marijuana (THC) Screen (NotDetected) Influenza Type A (PCR) Not Detected (Not Detectd) Influenza Type B (PCR) Not Detected (Not Detectd) RSV (PCR) Not Detected (Not Detectd) SARS-CoV-2 (PCR) Not Detected (Not Detectd) - EKG Data -: EKG Interpreted by Me EKG Comments: 12-lead Electrocardiogram Interpretation Note EKG was reviewed and interpreted by myself. 12-lead ECG performed at 1002 is interpreted by me as revealing normal sinus rhythm at a rate of 79 beats per minute. Left axis deviation with chronic left bundle branch block. SC interval is 162 ms, QRS duration is 145 ms, QTc is 463 ms.. There were no acute ST or T wave abnormalities to suggest myocardial ischemia or injury. R wave progression is delayed.. By my interpretation this EKG is non-diagnostic for acute ischemia. Disposition Clinical Impression: Altered mental status, Dehydration Disposition: ADMITTED IP TO THIS HOSP Condition: Stable Time of Disposition: 12:31
[2023-04-22] MEDS: SODIUM CHLORIDE 0.9% 500 ML 500 ML IV STA (13:40)
--- NOTE | 2023-04-22 16:05 | P.HPIM ---
History of Present Illness H&P Date: 04/22/23 Patient is a 73-year-old female with history of dementia, hypertension, dyslipidemia, depression, psychotic disorder presenting with altered mentation. Patient was recently in the emergency after a fall, and had suffered from radial fracture, and had a cast placed. She continued to rip off her cast, and has been was trying to redress her injury. Over the last week or so she has not received any pain medications. claims that she has been having urinary incontinence over the last few days, denies any bowel movement issues. She has been getting progressively weaker, appears more tired, and has been having more hallucinations. Patient is also not eating and drinking as well as she was previously. No recent fevers, no recent complaints of chest pain, shortness of breath, abdominal pain. No recent travel history, sick contacts. In the ED, temperature was 97, pulse 77, respiratory rate 20, blood pressure 135/79, saturating at 97% on room air. WBC 10, hemoglobin 13.1, platelet 223, creatinine 0.79, troponin negative, proBNP 136, urinalysis negative for nitrites, trace leukocyte esterase, urine toxicology negative, respiratory viral panel negative. Brain CT did not show any acute process. Chest x-ray independently interpreted, shows some interstitial opacities. Patient being admitted for acute on chronic encephalopathy. Neurology consulted. Pertinent positives and negatives as discussed in HPI, a complete review of systems was performed and all other systems are negative. Patient seen and examined at bedside. Vital signs reviewed General: nontoxic, no distress, appears at stated age Derm: warm, dry Head: atraumatic, normocephalic, symmetric Eyes: EOMI, no lid lag, anicteric sclera, pupils equal round reactive to light ENT: Nose and ears atraumatic Neck: No thyromegaly, supple Mouth: no lip lesion, mucus membranes moist Cardiovascular: S1S2 reg, no murmur, no edema Lungs: clear to auscultation bilateral, no rhonchi, no rales, no wheeze, no accessory muscle use Abdominal: soft, nontender to palpation, no guarding, no appreciable organomegaly Ext: Left forearm in a cast Neuro: CN II-XII grossly intact, not following commands Psych: Unable to assess Assessment/Plan: Active: Acute encephalopathy, likely delirium History of dementia Dehydration History of depression and behavioral disorder Urinary incontinence Recent left radial fracture Possibly undertreated pain TSH, B12, folic acid pending Concern for dehydration on presentation, hold hydrochlorothiazide, patient is now status post 1 L of normal saline. Continue to encourage oral intake Started on scheduled Tylenol thousand 3 times daily Bladder scan Continue memantine 10 twice daily, Risperdal 0.25 at bedtime, and Lexapro 20 Neurology consulted, pending recommendations Orthopedic surgery consulted Chronic: Hypertension Dyslipidemia The patient is admitted with an anticipated greater than 2 midnight stay as inpatient status for evaluation of acute encephalopathy. Surrogate decision-maker: CODE STATUS: Full code DVT prophylaxis: Lovenox Anticipated discharge date: Pending clinical course Anticipated discharge place: Pending clinical course A total of 55 minutes was spent on the care of this complex patient more than 50% of the time was spent in counseling and care coordination. Past Medical History Past Medical History: Dementia, Hypertension Additional Past Medical History / Comment(s): + HEMOCCULT History of Any Multi-Drug Resistant Organisms: None Reported Past Surgical History: Orthopedic Surgery Additional Past Surgical History / Comment(s): COLONOSCOPY, ORIF LT LEG 03/2012 Past Anesthesia/Blood Transfusion Reactions: No Reported Reaction Past Psychological History: No Psychological Hx Reported Smoking Status: Never smoker Past Alcohol Use History: None Reported Past Drug Use History: None Reported - Past Family History Mother Family Medical History: Cancer Medications and Allergies Home Medications Medication Instructions Recorded Confirmed Type Aspirin 81 mg PO DAILY 07/15/13 04/22/23 History Ramipril 10 mg PO BID 07/15/13 04/22/23 History hydroCHLOROthiazide [Hydrodiuril] 25 mg PO DAILY 07/15/13 04/22/23 History Calcium Citrate 250 mg PO BID 02/11/18 04/22/23 History Atorvastatin [Lipitor] 20 mg PO HS 04/22/23 04/22/23 History Cholecalciferol [Vitamin D3 (25 25 mcg PO DAILY 04/22/23 04/22/23 History Mcg = 1000 Iu)] Cyanocobalamin (Vitamin B-12) 5,000 mcg PO DAILY 04/22/23 04/22/23 History [Vitamin B-12] Escitalopram [Lexapro] 20 mg PO DAILY 04/22/23 04/22/23 History Famotidine [Pepcid] 20 mg PO BID 04/22/23 04/22/23 History Memantine [Namenda] 10 mg PO BID 04/22/23 04/22/23 History Metoprolol Succinate (ER) [Toprol 12.5 mg PO DAILY 04/22/23 04/22/23 History Xl] amLODIPine [Norvasc] 10 mg PO DAILY 04/22/23 04/22/23 History risperiDONE [RisperDAL] 0.25 mg PO HS 04/22/23 04/22/23 History Allergies Allergy/AdvReac Type Severity Reaction Status Date / Time codeine AdvReac Vomiting Verified 04/22/23 12:54 Physical Exam Vitals: Vital Signs Temp Pulse Resp BP Pulse Ox 04/22/23 15:33 84 20 100/80 95 04/22/23 13:27 84 20 130/68 96 04/22/23 12:03 76 20 130/71 95 04/22/23 11:19 80 22 141/81 95 04/22/23 09:47 97 F L 77 20 135/79 97 Intake and Output 04/22/23 04/22/23 04/22/23 06:59 14:59 22:59 Output Total 500 Balance -500 Output: Urine 500 Straight 500 Other: Weight 86.183 kg Results CBC & Chem 7: 04/22/23 10:16 04/22/23 10:16 Labs: Abnormal Lab Results - Last 24 Hours (Table) 04/22/23 04/22/23 04/22/23 Range/Units 10:16 10:16 10:16 Neutrophils # 8.2 H (1.3-7.7) k/uL Lymphocytes # 0.8 L (1.0-4.8) k/uL BUN 22 H (7-17) mg/dL Glucose 112 H (74-99) mg/dL AST 39 H (14-36) U/L Urine Blood Trace H (Negative) Ur Leukocyte Esterase Trace H (Negative) Urine Mucus Rare H (None) /hpf
[2023-04-22] MEDS: ACETAMINOPHEN TAB 500 MG TAB PO SCH (16:44)
--- NOTE | 2023-04-22 17:46 | P.CNNES ---
History of Present Illness Consult date: 04/22/23 Requesting physician: Morales Dimas Reason for Consult: ams History of Present Illness: This is a 73-year-old woman with history of dementia who presented to the emergency department because of worsening of her confusion. History was obtained from the patient . According to the he stated that the baseline she is oriented the 0-1 and that's only to herself. Is seems about 2 weeks ago she had a fall and the patient witnessed it and there is no seizure activity. She had a fracture of the left upper extremity as a result has a cast. He stated the past couple days to week patient's been confused and she's been trying to grab things are not there. She's not been as conversive. She's been more sleepy than normal. Per the she does not have any history of seizures in the past. She has dementia since at least 2018 progressively getting worse. Some of the work-up during this hospital visit consisted of: White blood cells 10.0 thousand. Glucose is 112 and that serum, sodium is 140, calcium is 9.9, ammonia is 10. UDS are not detected. SARS CoV2 pCR, RSV, Influenza A/B PCR are not detected. CT of the head is reported as no acute intracranial process. Chronic changes as above. I personally reviewed CT and agree there is no acute or subacute process. Review of Systems ROS is limited but positive and negative as per HPI. Past Medical History Past Medical History: Dementia, Hypertension Additional Past Medical History / Comment(s): + HEMOCCULT History of Any Multi-Drug Resistant Organisms: None Reported Past Surgical History: Orthopedic Surgery Additional Past Surgical History / Comment(s): COLONOSCOPY, ORIF LT LEG 03/2012 Past Anesthesia/Blood Transfusion Reactions: No Reported Reaction Past Psychological History: No Psychological Hx Reported Smoking Status: Never smoker Past Alcohol Use History: None Reported Past Drug Use History: None Reported - Past Family History Mother Family Medical History: Cancer Medications and Allergies Home Medications Medication Instructions Recorded Confirmed Type Aspirin 81 mg PO DAILY 07/15/13 04/22/23 History Ramipril 10 mg PO BID 07/15/13 04/22/23 History hydroCHLOROthiazide [Hydrodiuril] 25 mg PO DAILY 07/15/13 04/22/23 History Calcium Citrate 250 mg PO BID 02/11/18 04/22/23 History Atorvastatin [Lipitor] 20 mg PO HS 04/22/23 04/22/23 History Cholecalciferol [Vitamin D3 (25 25 mcg PO DAILY 04/22/23 04/22/23 History Mcg = 1000 Iu)] Cyanocobalamin (Vitamin B-12) 5,000 mcg PO DAILY 04/22/23 04/22/23 History [Vitamin B-12] Escitalopram [Lexapro] 20 mg PO DAILY 04/22/23 04/22/23 History Famotidine [Pepcid] 20 mg PO BID 04/22/23 04/22/23 History Memantine [Namenda] 10 mg PO BID 04/22/23 04/22/23 History Metoprolol Succinate (ER) [Toprol 12.5 mg PO DAILY 04/22/23 04/22/23 History Xl] amLODIPine [Norvasc] 10 mg PO DAILY 04/22/23 04/22/23 History risperiDONE [RisperDAL] 0.25 mg PO HS 04/22/23 04/22/23 History Allergies Allergy/AdvReac Type Severity Reaction Status Date / Time codeine AdvReac Vomiting Verified 04/22/23 12:54 Physical Examination - Vital Signs Vital Signs: Vital Signs Temp Pulse Resp BP Pulse Ox 04/22/23 16:47 98.5 F 89 22 116/81 94 L 04/22/23 15:33 84 20 100/80 95 04/22/23 13:27 84 20 130/68 96 04/22/23 12:03 76 20 130/71 95 04/22/23 11:19 80 22 141/81 95 04/22/23 09:47 97 F L 77 20 135/79 97 Intake and Output 04/22/23 04/22/23 04/22/23 06:59 14:59 22:59 Output Total 500 Balance -500 Output: Urine 500 Straight 500 Other: Weight 86.183 kg General: Lying in bed and does not appear in acute distress. HENT: Supple neck. Neuro: Is severely encephalopathic. But towards end followed simple commands (thumbs up and wiggling toes and smiling). Not verbalizing. No facial weakness. Motor: Strength hard to assess because of cooperation. Was lifting bilateral uppers. Reflex: 1+ throughout. Results - Laboratory Findings CBC and BMP: 04/22/23 10:16 04/22/23 10:16 Abnormal Lab Findings: Abnormal Labs 04/22/23 04/22/23 04/22/23 10:16 10:16 10:16 Neutrophils # 8.2 H Lymphocytes # 0.8 L BUN 22 H Glucose 112 H AST 39 H Urine Blood Trace H Ur Leukocyte Esterase Trace H Urine Mucus Rare H Assessment and Plan Assessment: This is a 73-year-old woman with history of dementia presents emergency department because of worsening of mentation and been more sleepy. She had a fracture about 2 weeks ago after a fall and suffered a radial fracture and has a good cast placed over the left upper extremity. Delirium due to the recent fall as well as a medication-induced History of dementia since at least 2019 at baseline as she is oriented 0-1 Hypertension Dyslipidemia Plan: I ordered a routine EEG TSH, folate, vitamin B12 is ordered by the primary team is pending I consulted PT and OT We'll defer the rest of the medical management to primary and other specialists The plan was discussed with the patient and the primary attending Thank you for the consultation. Time with Patient: Greater than 30
[2023-04-22] MEDS: ATORVASTATIN 20 MG TAB PO SCH (20:23)
[2023-04-22] MEDS: FAMOTIDINE 20 MG TAB PO SCH (20:23)
[2023-04-22] MEDS: lisinopriL 20 MG TAB PO SCH (20:24)
[2023-04-22] MEDS: MEMANTINE 10 MG TAB PO SCH (20:25)
[2023-04-22] MEDS: risperiDONE 0.25 MG TAB PO SCH (20:26)
[2023-04-23] MEDS: ENOXAPARIN 40 MG/0.4 ML SYRINGE SQ SCH (08:54)
[2023-04-23] MEDS: amLODIPine 10 MG TAB PO SCH (08:54)
[2023-04-23] MEDS: ESCITALOPRAM 20 MG TAB PO SCH (08:54)
[2023-04-23] MEDS: ASPIRIN 81 MG PO SCH (08:54)
[2023-04-23] MEDS: METOPROLOL SUCCINATE (ER) 25 MG TAB.ER.24H PO SCH (08:56)
[2023-04-23] MEDS ORDERED: hydroCHLOROthiazide 25 MG TAB PO SCH (09:00)
--- NOTE | 2023-04-23 10:11 | P.CNOR ---
History of Present Illness - [facility] Consult date: 04/23/23 Requesting physician: Brody Vance Consult reason: other (left radial fracture, recent ) History of present illness: Patient is a 73 throughout female who presents to the emergency department yesterday due to altered mentation. Patient does have a history of dementia. Patient was recently noted to the emergency department after a fall and suffered a left distal radius fracture and had a cast in place. Patient continuously remove his cast and splints from left wrist. Patient was seen at bedside this morning the ER with a splint present to left upper extremity over wrist. Neel prieto was present during counter and gave most of the history. Patient's states a couple weeks ago when patient initially wrists she did have a cast put on by Dr. Bains in the office and about several days into it she removed the cast. states since then patient has removed while her cast and splint. states that over the past couple days he haschange in his last mentation. He says normally she is able to get up and move around and got breakfast, however, this past Saturday she seemed to have no energy. Patient's states she has not had any falls recently. Patient states she is not having pain anywhere besides her wrist. The pain in the wrist is under control. Patient's states that patient has been having some issues with urinary incontinence over the past couple days and no bowel issues. states that his has appeared weaker over the past several days as well. Past Medical History Past Medical History: Dementia, Hypertension Additional Past Medical History / Comment(s): + HEMOCCULT History of Any Multi-Drug Resistant Organisms: None Reported Past Surgical History: Orthopedic Surgery Additional Past Surgical History / Comment(s): COLONOSCOPY, ORIF LT LEG 03/2012 Past Anesthesia/Blood Transfusion Reactions: No Reported Reaction Past Psychological History: No Psychological Hx Reported Smoking Status: Never smoker Past Alcohol Use History: None Reported Past Drug Use History: None Reported - Past Family History Mother Family Medical History: Cancer Medications and Allergies Home Medications Medication Instructions Recorded Confirmed Type Aspirin 81 mg PO DAILY 07/15/13 04/22/23 History Ramipril 10 mg PO BID 07/15/13 04/22/23 History hydroCHLOROthiazide [Hydrodiuril] 25 mg PO DAILY 07/15/13 04/22/23 History Calcium Citrate 250 mg PO BID 02/11/18 04/22/23 History Atorvastatin [Lipitor] 20 mg PO HS 04/22/23 04/22/23 History Cholecalciferol [Vitamin D3 (25 25 mcg PO DAILY 04/22/23 04/22/23 History Mcg = 1000 Iu)] Cyanocobalamin (Vitamin B-12) 5,000 mcg PO DAILY 04/22/23 04/22/23 History [Vitamin B-12] Escitalopram [Lexapro] 20 mg PO DAILY 04/22/23 04/22/23 History Famotidine [Pepcid] 20 mg PO BID 04/22/23 04/22/23 History Memantine [Namenda] 10 mg PO BID 04/22/23 04/22/23 History Metoprolol Succinate (ER) [Toprol 12.5 mg PO DAILY 04/22/23 04/22/23 History Xl] amLODIPine [Norvasc] 10 mg PO DAILY 04/22/23 04/22/23 History risperiDONE [RisperDAL] 0.25 mg PO HS 04/22/23 04/22/23 History Allergies Allergy/AdvReac Type Severity Reaction Status Date / Time codeine AdvReac Vomiting Verified 04/22/23 12:54 Physical Examination Volar splint present to the left upper extremity over the wrist and forearm. Nawaf wrap present over splint. Sensation is equal, symmetric, and intact throughout upper extremities on exam. Some mild tenderness to palpation over the left wrist. Nontender to palpation throughout rest of exam. Patient has full range of motion throughout bilateral upper extremities on exam. Limited range of motion in left wrist secondary to injury and splinting in place. Patient is able to wiggle digits in left upper extremity. Patient has full range of motion throughout the left elbow in flexion/extension. 4/5 in all ma naomy motor groups in right upper extremity. 4/5 in left shoulder and left elbow exam. Radial pulses intact, 2+. Cap refill under 3 seconds in digits of UE. Negative Homans bilaterally. Negative clonus bilaterally. Results - Labs Labs: Abnormal Lab Results - Last 24 Hours (Table) 04/22/23 04/22/23 04/22/23 Range/Units 10:16 10:16 10:16 Neutrophils # 8.2 H (1.3-7.7) k/uL Lymphocytes # 0.8 L (1.0-4.8) k/uL BUN 22 H (7-17) mg/dL Glucose 112 H (74-99) mg/dL AST 39 H (14-36) U/L Urine Blood Trace H (Negative) Ur Leukocyte Esterase Trace H (Negative) Urine Mucus Rare H (None) /hpf H & H 04/22/23 Range/Units 10:16 Hgb 13.1 (11.4-16.0) gm/dL Hct 38.8 (34.0-46.0) % Coagulation 04/22/23 Range/Units 10:16 INR 1.0 (<1.2) Result Diagrams: 04/22/23 10:16 04/22/23 10:16 - Diagnostic results Wrist/Hand x-ray: report reviewed, image reviewed (X-ray of the left wrist reviewed from 04/18/2023 does reveal minimally angulated left distal radius fracture and very minimal to no displacement.) Assessment and Plan Assessment: 1. History of distal left radius fracture 2. Dementia; altered mental status. Plan: 1. History of distal left radius fracture - x-rays of left wrist reviewed from 04/18/2023 does show mildly angulated distal radius fracture and very minimal to no displacement. Patient had been following with Dr. Bains over the past few weeks in office and was treated with a cast the left wrist. I did discuss the findings of the exam with my attending, Dr. Bains. At this time we recommend continued conservative measures with use of a removable wrist brace. Prescription for removable wrist brace for the left was placed in patient's chart. At this time, we are not recommending any surgical intervention. We recommend conservative measures with brace and pain medication as needed. Patient to be nonweightbearing to the left upper extremity. We do recommend patient to follow-up in the outpatient setting with Dr. Bains for continued care. Patient is stable for orthopedic standpoint for discharge. Orthopedics is signing off at this time. Please do not hesitate to contact us for any further questions. 2. Appreciate medical and neurology management 3. Pain management - tylenol 4. DVT prophylaxis - aspirin; lovenox 5. GI prophylaxis - pepcid 6. PT/OT- nonweightbearing left upper extremity. Maintain LUE in splint/removable brace 7. Encourage incentive spirometer use 8. Appreciate consult Time with Patient: Less than 30
[2023-04-23 11:10] LABS: Basophils # (A) 0.05 X 10*3/uL (0.00-0.10); Basophils % (A) 0.8 %; Eosinophils # (A) 0.29 X 10*3/uL (0.04-0.35); Eosinophils % (A) 4.7 %; HCT 34.3 % (37.2-46.3); HGB 11.2 g/dL (12.0-15.0); Lymphocytes # (A) 0.83 X 10*3/uL (0.90-5.00); Lymphocytes % (A) 13.5 %; MCH 28.4 pg (27.0-32.0); MCHC 32.7 g/dL (32.0-37.0); MCV 87.1 FL (80.0-97.0); Monocytes # (A) 0.67 X 10*3/uL (0.20-1.00); Monocytes % (A) 10.9 %; NRBC Per 100 WBC 0 X 10*3/uL (0.00-0.01); Neutrophils # (A) 4.27 X 10*3/uL (1.80-7.70); Neutrophils % (A) 69.8 %; Platelet Count 197 X 10*3/uL (140-440); RBC 3.94 X 10*6/uL (4.10-5.20); RDW 13.2 % (11.5-14.5); WBC 6.13 X 10*3/uL (4.50-10.00)
[2023-04-23 11:46] LABS: BUN/Creat Ratio 18.29 Ratio (12.00-20.00); Blood Urea Nitrogen 12.8 mg/dL (9.0-27.0); Calcium 8.8 mg/dL (8.7-10.3); Carbon Dioxide 29.8 mmol/L (21.6-31.8); Chloride 105 mmol/L (96-109); Glucose 91 mg/dL (70-110); Potassium 3.6 mmol/L (3.5-5.5); Sodium 144 mmol/L (135-145)
[2023-04-23 11:55] LABS: Vitamin B12 >1800.0 pg/mL (200.0-944.0)
--- NOTE | 2023-04-23 14:44 | P.PN ---
Subjective Progress Note Date: 04/23/23 Hospital Course: 73-year-old female with history of dementia, hypertension, dyslipidemia, depression, psychotic disorder presenting with altered mentation. In the ED, temperature was 97, pulse 77, respiratory rate 20, blood pressure 135/79, saturating at 97% on room air. WBC 10, hemoglobin 13.1, platelet 223, creatinine 0.79, troponin negative, proBNP 136, urinalysis negative for nitrites, trace leukocyte esterase, urine toxicology negative, respiratory viral panel negative. Brain CT did not show any acute process. Chest x-ray independently interpreted, shows some interstitial opacities. Patient being admitted for acute on chronic encephalopathy. Neurology consulted. Had urinary retention, status post Mar catheter placement. Mental status back to normal. Orthopedics consulted. Subjective: Patient seen and examined at bedside. No acute events overnight. Mental status back to normal. Mar catheter in place Pertinent positives and negatives as discussed above, a complete review of systems was performed and all other systems are negative. Vitals Signs Reviewed. General: Nontoxic, no distress, appears at stated age Derm: Warm, dry Head: Atraumatic, normocephalic, symmetric Eyes: EOMI, no lid lag, anicteric sclera Mouth: No lip lesion, mucus membranes moist Cardiovascular: S1S2 reg, no murmur Lungs: CTA bilateral, no rhonchi, no rales, no accessory muscle use Abdominal: Soft, nontender to palpation, no guarding, no appreciable organomegaly Ext: No gross muscle atrophy, no edema, no contractures Neuro: CN II-XI grossly intact, no focal neuro deficits Psych: Alert, oriented x 1, appropriate affect Data Reviewed Today: Pertinent Labs: WBC 6.13, hemoglobin 11.2, creatinine 0.7, TSH 1.8, B12 greater than 1800 Imaging: No new imaging Assessment and Plan: Acute encephalopathy, likely delirium, resolved Acute urinary retention, status post Mar catheter placement History of dementia Dehydration, resolved History of depression and behavioral disorder Urinary incontinence Recent left radial fracture Continue scheduled Tylenol thousand 3 times daily Continue to hold hydrochlorothiazide Continue to encourage oral intake Continue memantine 10 twice daily, Risperdal 0.25 at bedtime, and Lexapro 20 Discussed management with neurology, pending EEG, otherwise no further workup needed Orthopedic surgery note reviewed, continue conservative therapy, outpatient follow-up, brace provided Chronic: Hypertension Dyslipidemia DVT ppx: Lovenox Code status: DNR/DNI Anticipated discharge place: Pending clinical course Anticipated discharge time: Pending clinical course Objective - Vital Signs Vital signs: Vital Signs Temp 98.4 F 04/23/23 07:28 Pulse 69 04/23/23 12:06 Resp 18 04/23/23 12:06 BP 116/73 04/23/23 12:06 Pulse Ox 96 04/23/23 12:06 FiO2 Intake & Output 04/22/23 04/23/23 04/23/23 18:59 06:59 18:59 Output Total 500 1800 Balance -500 -1800 Weight 86.183 kg Output: Urine 500 1800 Straight 500 Uretheral (Mar) 1800 - Labs CBC & Chem 7: 04/23/23 07:20 04/23/23 07:20 Labs: Abnormal Lab Results - Last 24 Hours (Table) 04/23/23 04/23/23 Range/Units 07:20 07:20 RBC 3.94 L (4.10-5.20) X 10*6/uL Hgb 11.2 L (12.0-15.0) g/dL Hct 34.3 L (37.2-46.3) % Lymphocytes # 0.83 L (0.90-5.00) X 10*3/uL Vitamin B12 >1800.0 H (200.0-944.0) pg/mL
--- NOTE | 2023-04-23 14:57 | P.PN ---
Subjective Progress Note Date: 04/23/23 I am following-up with patient and she is accompanied with her who states she is back to baseline from neurological perspective. It seems she was retaining urine. Objective - Vital Signs Vital signs: Vital Signs Temp 98.4 F 04/23/23 07:28 Pulse 69 04/23/23 12:06 Resp 18 04/23/23 12:06 BP 116/73 04/23/23 12:06 Pulse Ox 96 04/23/23 12:06 FiO2 Intake & Output 04/22/23 04/23/23 04/23/23 18:59 06:59 18:59 Output Total 500 1800 Balance -500 -1800 Weight 86.183 kg Output: Urine 500 1800 Straight 500 Uretheral (Mar) 1800 - Exam General: Lying in bed and is not in acute distress. Neuro: Limited because of her dementia. She is awake, alert, oriented to self. She stated her name correctly. She does not know place and time (baseline oriented to 0-1). She is following few simple commands. She is showing a thumbs up. Smile is symmetrical. Motor:Unable to assess individual muscle strength. Is able to lift bilateral uppers slightly above gravity. Has cast over the left upper extremity. Some of the work-up during this hospital visit consisted of: White blood cells 10.0 thousand. Glucose is 112 and that serum, sodium is 140, calcium is 9.9, ammonia is 10. UDS are not detected. SARS CoV2 pCR, RSV, Influenza A/B PCR are not detected. Vitamin B12: >1800 Serum folate is 8.10 (normal is 4.4-31) TSH: 1.80 CT of the head is reported as no acute intracranial process. Chronic changes as above. I personally reviewed CT and agree there is no acute or subacute process. - Labs CBC & Chem 7: 04/23/23 07:20 04/23/23 07:20 Labs: Abnormal Lab Results - Last 24 Hours (Table) 04/23/23 04/23/23 Range/Units 07:20 07:20 RBC 3.94 L (4.10-5.20) X 10*6/uL Hgb 11.2 L (12.0-15.0) g/dL Hct 34.3 L (37.2-46.3) % Lymphocytes # 0.83 L (0.90-5.00) X 10*3/uL Vitamin B12 >1800.0 H (200.0-944.0) pg/mL Assessment and Plan Assessment: This is a 73-year-old woman with history of dementia presents emergency department because of worsening of mentation and been more sleepy. She had a fracture about 2 weeks ago after a fall and suffered a radial fracture and has a good cast placed over the left upper extremity. Delirium due to the recent fall as well as a medication-induced---resolved and is back to baseline. Low normal folic acid Urinary retention History of dementia since at least 2019 at baseline as she is oriented 0-1 Hypertension Dyslipidemia Plan: EEG:Completed but pending to be read. She has low normal folate 8.10 (normal is 4.4-31), therefore, started her on folic acid 1mg daily. I consulted PT and OT We'll defer the rest of the medical management to primary and other specialists The plan was discussed with the patient's who is at bedside and the primary attending ADDENDUM: EEG: Showed rare epileptiform discharge over left temporal which can increase risk for seizure. No seizure noted during this study. I started the patient on Keppra 500mg bid. Time with Patient: Less than 30
[2023-04-23] MEDS: levETIRAcetam 500 MG TAB PO SCH (16:15)
[2023-04-23] MEDS: FOLIC ACID 1 MG TAB PO SCH (16:15)
--- NOTE | 2023-04-23 23:25 | EEG ---
ELECTROENCEPHALOGRAM REPORT CLINICAL HISTORY: This is a 73-year-old woman with history of dementia, who presented because of episode of unresponsiveness with continuous confusion. The video EEG is obtained to evaluate for seizure epileptiform activity. RELEVANT MEDICATIONS: 1. Risperidone. 2. Namenda. EEG TYPE: This is a routine 21-channel EEG with video using the 10/20 electrode placement system. DESCRIPTION: Wakefulness is obtained. During awake state, the background consists of low-to- moderate voltage of 5.5 to 6 hertz activity. There is no physiological stage 2 sleep architecture. There is no focal slowing. Interictal and ictal, there is spike and slow waves over the left temporal region. There is no seizure noted during the study. ACTIVATION PROCEDURE: Photic stimulation did not evoke a posterior driving response. There is no abnormality during the photic stimulation. Hyperventilation is not performed. CLINICAL INTERPRETATION: This is an abnormal routine EEG. The background slowing is suggestive of moderate encephalopathy. The epileptiform discharges over the left temporal increases risk of focal seizure as well as status epilepticus. There is no focal slowing or seizure noted during this study. Clinical correlation is recommended. MMODL / IJN: [id number] / [email or web address]
--- NOTE | 2023-04-24 13:42 | P.PN ---
Subjective Progress Note Date: 04/24/23 I am following-up with patient and per she is about the same. No change in her neurological condition. Objective - Vital Signs Vital signs: Vital Signs Temp 98.3 F 04/24/23 07:25 Pulse 73 04/24/23 07:25 Resp 18 04/24/23 07:25 BP 131/80 04/24/23 07:25 Pulse Ox 96 04/24/23 10:17 FiO2 Intake & Output 04/23/23 04/24/23 04/24/23 18:59 06:59 18:59 Intake Total 120 Output Total 900 Balance -780 Intake: Oral 120 Output: Urine 900 Uretheral (Mar) 600 Other: Voiding Method Indwelling Catheter Indwelling Catheter - Exam General: Sitting up in a chair and is not in acute distress. Neuro: Limited because of her dementia. She is awake, alert, oriented to self. She stated she was at [facility]. She does not know place and time (baseline oriented to 0-1). . She is showing a thumbs up. Smile is symmetrical. Motor:Unable to assess individual muscle strength. Is able to lift bilateral uppers slightly above gravity. Has cast over the left upper extremity. Some of the work-up during this hospital visit consisted of: White blood cells 10.0 thousand. Glucose is 112 and that serum, sodium is 140, calcium is 9.9, ammonia is 10. UDS are not detected. SARS CoV2 pCR, RSV, Influenza A/B PCR are not detected. Vitamin B12: >1800 Serum folate is 8.10 (normal is 4.4-31) TSH: 1.80 CT of the head is reported as no acute intracranial process. Chronic changes as above. I personally reviewed CT and agree there is no acute or subacute process. Routine EEG: Is abnormal. The background slowing suggestive of moderate encephalopathy. The epileptiform discharges over left temporal can increase risk for seizures. No seizure noted during this study. - Labs CBC & Chem 7: 04/23/23 07:20 04/23/23 07:20 Labs: Microbiology - Last 24 Hours (Table) 04/22/23 18:40 Blood Culture - Preliminary Blood 04/22/23 18:25 Blood Culture - Preliminary Blood Assessment and Plan Assessment: This is a 73-year-old woman with history of dementia presents emergency department because of worsening of mentation and been more sleepy. She had a fracture about 2 weeks ago after a fall and suffered a radial fracture and has a good cast placed over the left upper extremity. Delirium due to the recent fall as well epileptiform discharge over left temporal and unsure if she was sleepy and unresponsive at home due to seizure. No seizure noted on EEG---resolved and is back to baseline. Low normal folic acid Urinary retention History of dementia since at least 2019 at baseline as she is oriented 0-1 Hypertension Dyslipidemia Plan: Continue Keppra 500mg bid started yesterday. I notified the patient's of side-effect of medication. She has low normal folate 8.10 (normal is 4.4-31), therefore, started her on folic acid 1mg daily. I consulted PT and OT We'll defer the rest of the medical management to primary and other specialists Recommend the patient to follow-up with neurologist as outpatient within 1-2 weeks. The plan was discussed with the patient's who is at bedside and the primary attending There is no further neurological work-up. Will sign off. Please reconsult if needed. Time with Patient: Less than 30
--- NOTE | 2023-04-24 14:02 | P.PN ---
Subjective Progress Note Date: 04/24/23 Hospital Course: 73-year-old female with history of dementia, hypertension, dyslipidemia, depression, psychotic disorder presenting with altered mentation. In the ED, temperature was 97, pulse 77, respiratory rate 20, blood pressure 135/79, saturating at 97% on room air. WBC 10, hemoglobin 13.1, platelet 223, creatinine 0.79, troponin negative, proBNP 136, urinalysis negative for nitrites, trace leukocyte esterase, urine toxicology negative, respiratory viral panel negative. Brain CT did not show any acute process. Chest x-ray independently interpreted, shows some interstitial opacities. Patient being admitted for acute on chronic encephalopathy. Neurology consulted. Had urinary retention, status post Mar catheter placement. Mental status back to normal. EEG did not show epileptiform discharges over the left temporal. Orthopedics consulted. Subjective: Patient seen and examined at bedside. No acute events overnight. Mental status back to normal. Mar catheter in place Pertinent positives and negatives as discussed above, a complete review of systems was performed and all other systems are negative. Vitals Signs Reviewed. General: Nontoxic, no distress, appears at stated age Derm: Warm, dry Head: Atraumatic, normocephalic, symmetric Eyes: EOMI, no lid lag, anicteric sclera Mouth: No lip lesion, mucus membranes moist Cardiovascular: S1S2 reg, no murmur Lungs: CTA bilateral, no rhonchi, no rales, no accessory muscle use Abdominal: Soft, nontender to palpation, no guarding, no appreciable organomegaly Ext: No gross muscle atrophy, no edema, no contractures, left forearm Brents Neuro: CN II-XI grossly intact, no focal neuro deficits Psych: Alert, oriented x 1, appropriate affect Data Reviewed Today: Pertinent Labs: No new labs Imaging: EEG did not show epileptiform discharges over the left temporal. Assessment and Plan: Acute encephalopathy, likely delirium, resolved Seizures History of dementia Dehydration, resolved History of depression and behavioral disorder Acute urinary retention, status post Mar catheter placement Urinary incontinence likely overflow Recent left radial fracture Discussed management with neurology, started on Keppra 500 twice daily oral Continue scheduled Tylenol thousand 3 times daily Continue to hold hydrochlorothiazide Continue to encourage oral intake Continue memantine 10 twice daily, Risperdal 0.25 at bedtime, and Lexapro 20 Orthopedic surgery: continue conservative therapy, outpatient follow-up, brace provided Chronic: Hypertension Dyslipidemia DVT ppx: Lovenox Code status: DNR/DNI Anticipated discharge place: Pending clinical course Anticipated discharge time: Pending clinical course Objective - Vital Signs Vital signs: Vital Signs Temp 98.3 F 04/24/23 07:25 Pulse 73 04/24/23 07:25 Resp 18 04/24/23 07:25 BP 131/80 04/24/23 07:25 Pulse Ox 96 04/24/23 10:17 FiO2 Intake & Output 04/23/23 04/24/23 04/24/23 18:59 06:59 18:59 Intake Total 120 Output Total 900 Balance -780 Intake: Oral 120 Output: Urine 900 Uretheral (Mar) 600 Other: Voiding Method Indwelling Catheter Indwelling Catheter - Labs CBC & Chem 7: 04/23/23 07:20 04/23/23 07:20 Labs: Microbiology - Last 24 Hours (Table) 04/22/23 18:40 Blood Culture - Preliminary Blood 04/22/23 18:25 Blood Culture - Preliminary Blood
[2023-04-25 08:15] VITALS: BP 129/81; PULSE 70; RESP 17; TEMP 98.5
--- NOTE | 2023-04-25 13:34 | P.DS ---
Providers Date of admission: 04/22/23 12:43 Expected date of discharge: 04/25/23 Attending physician: Brody Vance MD Consults: 04/22/23 12:44 Consult Physician Routine Consulting Provider: Matthew Bruno Consult Reason/Comments: AMS Do you want consulting provider notified?: Yes 04/22/23 16:02 Consult Physician Routine Consulting Provider: Juvencio Bains Consult Reason/Comments: left radial fracture, recent Do you want consulting provider notified?: Yes Primary care physician: [facility] Course: 73-year-old female with PMH of dementia, hypertension, history of depression and behavioral disorder, recent left radial fracture presents the ED for altered mentation. In the ED, temperature was 97, pulse 77, respiratory rate 20, blood pressure 135/79, saturating at 97% on room air. WBC 10, hemoglobin 13.1, platelet 223, creatinine 0.79, troponin negative, proBNP 136, urinalysis negative for nitrites, trace leukocyte esterase, urine toxicology negative, respiratory viral panel negative. Brain CT did not show any acute process. Chest x-ray independently interpreted, shows some interstitial opacities. Patient being admitted for acute on chronic encephalopathy. Neurology consulted. EEG brain showed background slowing suggesting moderate encephalopathy, left to form discharges over the left temporal lobe. She was started on Keppra 500 mg by mouth twice a day. Also noted to have urinary retention, Mar catheter placed and discontinued. 04/24 Patient was seen and examined. at bedside. Reports mentation back to baseline. States she feels a little unsteady compared to normal. Urinating freely. Plans on taking the patient home. Advised to follow up with PCP within 1-2 days and Neurology within 1 week of discharge. General: non toxic, no distress, appears at stated age Derm: warm, dry Head: atraumatic, normocephalic, symmetric Eyes: EOMI, no lid lag, anicteric sclera Mouth: no lip lesion, mucus membranes moist Cardiovascular: Good distal perfusion in all 4 extremities, Normal S1 S2. No murmurs. Lungs: Breathing comfortably, no accessory muscle use, CTA bilaterally Ext: no gross muscle atrophy, no edema, no contractures Neuro: no focal neuro deficits Psych: Alert, oriented, appropriate affect Discharge Diagnosis: Acute encephalopathy, likely delirium, resolved Seizures History of dementia Dehydration, resolved History of depression and behavioral disorder Acute urinary retention, status post Mar catheter placement Urinary incontinence likely overflow Recent left radial fracture This complex discharge took 35 minutes to complete. Patient Condition at Discharge: Stable Plan - Discharge Summary Discharge Rx Participant: No New Discharge Prescriptions: New RX: Folic Acid 1 mg PO DAILY #30 tab RX: levETIRAcetam [Keppra] 500 mg PO Q12HR #60 tab Continue RX: Ramipril 10 mg PO BID RX: hydroCHLOROthiazide [Hydrodiuril] 25 mg PO DAILY RX: Aspirin 81 mg PO DAILY RX: Calcium Citrate 250 mg PO BID RX: risperiDONE [RisperDAL] 0.25 mg PO HS RX: Memantine [Namenda] 10 mg PO BID RX: Escitalopram [Lexapro] 20 mg PO DAILY RX: Famotidine [Pepcid] 20 mg PO BID RX: Cyanocobalamin (Vitamin B-12) [Vitamin B-12] 5,000 mcg PO DAILY RX: Cholecalciferol [Vitamin D3 (25 Mcg = 1000 Iu)] 25 mcg PO DAILY RX: Atorvastatin [Lipitor] 20 mg PO HS RX: amLODIPine [Norvasc] 10 mg PO DAILY RX: Metoprolol Succinate (ER) [Toprol XL] 12.5 mg PO DAILY Discharge Medication List RX: Aspirin 81 mg PO DAILY 07/15/13 [History] RX: Ramipril 10 mg PO BID 07/15/13 [History] RX: hydroCHLOROthiazide [Hydrodiuril] 25 mg PO DAILY 07/15/13 [History] RX: Calcium Citrate 250 mg PO BID 02/11/18 [History] RX: Atorvastatin [Lipitor] 20 mg PO HS 04/22/23 [History] RX: Cholecalciferol [Vitamin D3 (25 Mcg = 1000 Iu)] 25 mcg PO DAILY 04/22/23 [History] RX: Cyanocobalamin (Vitamin B-12) [Vitamin B-12] 5,000 mcg PO DAILY 04/22/23 [History] RX: Escitalopram [Lexapro] 20 mg PO DAILY 04/22/23 [History] RX: Famotidine [Pepcid] 20 mg PO BID 04/22/23 [History] RX: Memantine [Namenda] 10 mg PO BID 04/22/23 [History] RX: Metoprolol Succinate (ER) [Toprol XL] 12.5 mg PO DAILY 04/22/23 [History] RX: amLODIPine [Norvasc] 10 mg PO DAILY 04/22/23 [History] RX: risperiDONE [RisperDAL] 0.25 mg PO HS 04/22/23 [History] RX: Folic Acid 1 mg PO DAILY #30 tab 04/25/23 [Rx] RX: levETIRAcetam [Keppra] 500 mg PO Q12HR #60 tab 04/25/23 [Rx] Follow up Appointment(s)/Referral(s): Martinez Cook MD [Primary Care Provider] - 04/30/23 11:15 am [facility], [NON-STAFF] - 1 Week ([facility] will call you to arrange a visit) Arlene Salguero MD [Medical Doctor] - 1 Week (Please call office to make your appointment.) Discharge/Stand Alone Forms: Adult Foster [facility] List, Help In The Home Discharge Disposition: HOME SELF-CARE
--- NOTE | 2023-04-29 10:42 | CDI ---
Documentation Clarification Form Date: 04/29/2023 10:23:27 AM From: Rachel Garcia Phone: Admit Date: 04/22/2023 12:43:00 PM Patient Name: Sofia Mario Visit Number: [id number] Discharge Date: 04/25/2023 01:35:00 PM ATTENTION: The Clinical Documentation Specialists (CDI) and [facility] Coding Staff appreciate your assistance in clarifying documentation. Please respond to the clarification below the line at the bottom and electronically sign. The CDI & [facility] Coding staff will review the response and follow-up if needed. Please note: Queries are made part of the Legal Health Record. If you have any questions, please contact the author of this message via ITS. Dr. Brody Vance Acute on chronicencephalopathy is documented per H&P and throughout the Progress Notes. Additional clarification regarding the type of encephalopathy is requested. History/Risk Factors: 73yo F, encephalopathy,deliriumd/t recentfall& medication-induced,seizures, dementia, HTN, HLD, dehydration,depression, behavioral disorder, urinary retention, urinary incontinenced/t overflow, Lt Radial fracture Clinical Indicators: Labs: CBC Chem 7; Calcium 9.9; BUN 22; Creatinine 0.79 EEG: Showed rare epileptiform discharge over Lt temporal which can increase risk forseizure. Noseizurenoted during study. CT Brain: No acuteintracranial hemorrhage,mass,masseffect, midline shift, extra-axial fluidcollectionorhydrocephalus. Hypoattenuation within the periventricular, subcortical and deep white matter whichlikelyrelates to chronicischemicsmall vessel change. No acute major vesselinfarctis clearly identified on the scope of this examination. The visualized paranasal sinuses and mastoid air cells are clear. Treatment: She was started on Keppra 500 mg by mouth twice a day. Please clarify the type of encephalopathy, if known: [ ] Metabolic Encephalopathy [ ] Toxic Encephalopathy [ ] Other, please specify [ x] Unable to determine (Template Last Revised: April 2020) MTDD
--- NOTE | 2023-05-07 10:56 | CDI ---
Documentation Clarification Form Date: 05/07/2023 From: Nadine Olvera Phone: [phone] Admit Date: 04/22/2023 12:43:00 PM Patient Name: Sofia Mario Visit Number: [id number] Discharge Date: 04/25/2023 01:35:00 PM ATTENTION: The Clinical Documentation Specialists (CDI) and [facility] Coding Staff appreciate your assistance in clarifying documentation. Please respond to the clarification below the line at the bottom and electronically sign. The CDI & [facility] Coding staff will review the response and follow-up if needed. Please note: Queries are made part of the Legal Health Record. If you have any questions, please contact the author of this message via ITS. Dr. Matthew Bruno Acute on chronic encephalopathy is documented in the record. Additional clarification regarding the type of encephalopathy is requested. History/Risk Factors: 73yo with a history of dementia (baseline Ox1), presented with worsening confusion. Per the , the pt has been trying to grab things that are not there, more sleepy than usual and not as conversive. Clinical Indicators: neuro consult on 04/21 noted the patient is severely encephalopathic and noted delirium due to recent fall as well as medication- induced. Per neuro PN on 04/22 the pt was back to baseline neurologically and had urinary retention. H&P on 04/21 noted the patient was admitted for acute on chronic encephalopathy Labs 04/21: BUN 22, gluc 112, AST 39 04/22: BUN 12.8, gluc 91, Vit B12 >1800 EEG 04/22: abnormal routing EEG, background slowing is suggestive of moderate encephalopathy CT Brain 04/21: chronic ischemic small vessel change, no acute intracranial process Treatment: Keppra po, folic acid po, IV fluid, monitoring Please clarify the type of encephalopathy, if known: [ ] Metabolic encephalopathy [ ] Toxic encephalopathy [ ] Other encephalopathy (please specify) [ ] Other etiology, please specify [ ] Unable to determine --->Delirium due to medication induced (Template Last Revised: April 2020) RUKHSANAD
== END 2023-04-25 13:35 | disposition home or self-care (01) ==
LOC: EC 09:35 → INTOOBSV 12:43 → 4SSUR 12:43 → UNDODISIN 04-25 13:35
PROVIDERS: ADMIT Student in an Organized Health Care Education/Training Program; ATTEND Student in an Organized Health Care Education/Training Program
DX: G93.40 Encephalopathy, unspecified (principal); R56.9 Unspecified convulsions; T50.905A Adverse effect of unspecified drugs, medicaments and biological substances, initial encounter; F03.918 Unspecified dementia, unspecified severity, with other behavioral disturbance; F03.93 Unspecified dementia, unspecified severity, with mood disturbance; E86.0 Dehydration; I44.7 Left bundle-branch block, unspecified; I10 Essential (primary) hypertension; E78.5 Hyperlipidemia, unspecified; S52.502D Unspecified fracture of the lower end of left radius, subsequent encounter for closed fracture with routine healing; W19.XXXD Unspecified fall, subsequent encounter; N39.490 Overflow incontinence; F32.A Depression, unspecified; F91.9 Conduct disorder, unspecified; Z79.82 Long term (current) use of aspirin; Z79.899 Other long term (current) drug therapy; Z88.5 Allergy status to narcotic agent; Z11.52 Encounter for screening for COVID-19; Z11.59 Encounter for screening for other viral diseases; Z66 Do not resuscitate
CPT/HCPCS: 96372 ×3; 96360; 96361; 99285; 51798; 36415; 94760; 95816; 93005; 97116; 97162; 97530; 97166; 83880; 80053; 80048; 84443; 82607; 82140; 82746; 83605; 84484; 85025 ×2; 85610; 85730; 81001; 87040; 80306; 87636; 71046; 70450; G0378 ×4; J1650 ×3

== ENCOUNTER 2023-08-19 23:24 | Emergency (ER) | payer MEDICARE ==
[2023-08-19 23:53] VITALS: TEMP 98.4
--- NOTE | 2023-08-19 23:54 | ED ---
Fall HPI <Gillian Antony - Last Filed: 08/19/23 23:51> <Vince Nick - Last Filed: 08/20/23 04:01> - General Stated Complaint: Fall, Leg Injury Time Seen by Provider: 08/19/23 23:51 - History of Present Illness Initial Comments: Quick [id number] female with history of dementia presenting via EMS for fall prior to arrival. Family member is present and explains that she fell out of bed. He called EMS as he was unable to get her up by himself. He believes she is having some right leg pain since the fall, however due to the dementia states she is unable to give a clear answer. Patient denies hitting her head. Patient denies any current pain or symptoms. (Gillian Antony) 73-year-old female with a history of dementia presenting with her who is her primary caregiver. Patient's said that she witnessed patient rolled out of bed. No head injury at this time. While the patient was rolling out of bed she was her right leg/ankle was caught in the blanket. States that initially the patient refused to stand and is concerned she may have an ankle injury thus bring her to the ED for further evaluation. No other injuries at this time. While here in the ED we were able to stand the patient with no difficulties. Patient currently has no complaints. (Vince Nick) - Related Data Home Medications Medication Instructions Recorded Confirmed Aspirin 81 mg PO DAILY 07/15/13 04/22/23 Ramipril 10 mg PO BID 07/15/13 04/22/23 hydroCHLOROthiazide [Hydrodiuril] 25 mg PO DAILY 07/15/13 04/22/23 Calcium Citrate 250 mg PO BID 02/11/18 04/22/23 Atorvastatin [Lipitor] 20 mg PO HS 04/22/23 04/22/23 Cholecalciferol [Vitamin D3 (25 25 mcg PO DAILY 04/22/23 04/22/23 Mcg = 1000 Iu)] Cyanocobalamin (Vitamin B-12) 5,000 mcg PO DAILY 04/22/23 04/22/23 [Vitamin B-12] Escitalopram [Lexapro] 20 mg PO DAILY 04/22/23 04/22/23 Famotidine [Pepcid] 20 mg PO BID 04/22/23 04/22/23 Memantine [Namenda] 10 mg PO BID 04/22/23 04/22/23 Metoprolol Succinate (ER) [Toprol 12.5 mg PO DAILY 04/22/23 04/22/23 XL] amLODIPine [Norvasc] 10 mg PO DAILY 04/22/23 04/22/23 risperiDONE [RisperDAL] 0.25 mg PO HS 04/22/23 04/22/23 Previous Rx's Medication Instructions Recorded Folic Acid 1 mg PO DAILY #30 tab 04/25/23 levETIRAcetam [Keppra] 500 mg PO Q12HR #60 tab 04/25/23 Allergies Allergy/AdvReac Type Severity Reaction Status Date / Time codeine AdvReac Vomiting Verified 08/19/23 23:53 Review of Systems ROS Other: All systems not noted in ROS Statement are negative. <Gillian Antony - Last Filed: 08/19/23 23:51> ROS Other: All systems not noted in ROS Statement are negative. <Vince Nick - Last Filed: 08/20/23 04:01> ROS Statement: Those systems with pertinent positive or pertinent negative responses have been documented in the HPI. Past Medical History Past Medical History: Dementia, Hypertension Additional Past Medical History / Comment(s): + HEMOCCULT History of Any Multi-Drug Resistant Organisms: None Reported Past Surgical History: Orthopedic Surgery Additional Past Surgical History / Comment(s): COLONOSCOPY, ORIF LT LEG 03/2012 Past Anesthesia/Blood Transfusion Reactions: No Reported Reaction Past Psychological History: No Psychological Hx Reported Smoking Status: Never smoker Past Alcohol Use History: None Reported Past Drug Use History: None Reported - Past Family History Mother Family Medical History: Cancer <Gillian Antony - Last Filed: 08/19/23 23:51> General Exam <Gillian Antony - Last Filed: 08/19/23 23:51> General appearance: alert, in no apparent distress Eye exam: Present: normal appearance Neck exam: Present: normal inspection Respiratory exam: Present: normal lung sounds bilaterally Cardiovascular Exam: Present: regular rate GI/Abdominal exam: Present: soft, normal bowel sounds. Absent: distended, tenderness, guarding, rebound, rigid Extremities exam: Present: other (Strength and sensation equal intact bilateral lower extremities. DP/PT pulses intact.) Back exam: Present: other (No midline spinal tenderness to palpation.) Neurological exam: Present: alert <ParkVince - Last Filed: 08/20/23 04:01> - General Exam Comments Initial Comments: Visual Physical Exam General: Well-appearing, nontoxic, no acute distress. Head: Normocephalic, atraumatic Eyes: PERRLA, EOMI ENT: Airway patent Chest: Nonlabored breathing Skin: No visual rash, normal skin tone Neuro: Alert and oriented 3 Musculoskeletal: No gross abnormalities (Gillian Antony) Course Vital Signs 08/19/23 23:48 Temperature 98.4 F Pulse Rate 63 Respiratory 24 Rate Blood Pressure 125/82 O2 Sat by Pulse 99 Oximetry Medical Decision Making <Gillian Antony - Last Filed: 08/19/23 23:51> <Vince Nick - Last Filed: 08/20/23 04:01> - Medical Decision Making I completed the quick note portion of this chart signed Gillian Antony PA-C (Gillian Antony) Was pt. sent in by a medical professional or institution ([facility], GIFT CONSULTANT, urgent care, hospital, or snf...) When possible be specific @ -No Did you speak to anyone other than the patient for history (EMS, parent, family, police, friend...)? What history was obtained from this source @ -Entirety of the history provided by the patient's . For further details please see HPI. Did you review nursing and triage notes (agree or disagree)? Why? @ -I reviewed and agree with nursing and triage notes Were old charts reviewed (outside hosp., previous admission, EMS record, old EKG, old radiological studies, urgent care reports/EKG's, snf records)? Report findings @ -No old charts were reviewed Differential Diagnosis (chest pain, altered mental status, abdominal pain women, abdominal pain men, vaginal bleeding, weakness, fever, dyspnea, syncope, headache, dizziness, GI bleed, back pain, seizure, CVA, palpatations, mental health, musculoskeletal)? @ -Differential Musculoskeletal Muscular strain, contusion, ligament sprain, fracture, arthritis, septic arthritis, bursitis, cellulitis, muscle spasm, nerve compression, DVT, arterial occlusion, herpes zoster, electrolyte abnormality, tumor.... This is not meant to be in all inclusive list EKG interpreted by me (3pts min.). @ -None X-rays interpreted by me (1pt min.). @ -X-ray of the knee and ankle interpreted me which revealed no evidence of acute finding. CT interpreted by me (1pt min.). @ -None done U/S interpreted by me (1pt. min.). @ -None done What testing was considered but not performed or refused? (CT, X-rays, U/S, labs)? Why? @ -None What meds were considered but not given or refused? Why? @ -None Did you discuss the management of the patient with other professionals (professionals i.e. Dr., PA, GIFT CONSULTANT, lab, RT, psych nurse, addiction social worker, per diem, teacher, ammunition officer, manager rn case)? Give summary @ -No Was smoking cessation discussed for >3mins.? @ -No Was critical care preformed (if so, how long)? @ -No Were there social determinants of health that impacted care today? How? (Homelessness, low income, unemployed, alcoholism, drug addiction, transportation, low edu. Level, literacy, decrease access to med. care, group home, rehab)? @ -No Was there de-escalation of care discussed even if they declined (Discuss DNR or withdrawal of care, Hospice)? DNR status @ -No What co-morbidities impacted this encounter? (DM, HTN, Smoking, COPD, CAD, Cancer, CVA, ARF, Chemo, Hep., AIDS, mental health diagnosis, sleep apnea, morbid obesity)? @ -None Was patient admitted / discharged? Hospital course, mention meds given and route, prescriptions, significant lab abnormalities, going to OR and other pertinent info. @ -Discharge 73-year-old female presents to the ED with concerns for possible right leg/knee injury. Per , patient rolled out of bed when her right lower extremity got stuck in the blankets and initially did not want to bear weight concerning him for possible injury. No head injury at this time. Since then, patient has been able to bear weight difficulty. On exam strength and sensation equal and intact in bilateral lower extremities. DP/PT pulses intact imaging reveals no evidence of acute finding. Patient discharged home in stable condition. Discussed return precautions with patient's who verbalized agreement. Undiagnosed new problem with uncertain prognosis? @ -No Drug Therapy requiring intensive monitoring for toxicity (Heparin, Nitro, Insulin, Cardizem)? @ -No Were any procedures done? @ -No Diagnosis/symptom? @ -Roll from bed, concern for right lower extremity injury Acute, or Chronic, or Acute on Chronic? @ -Acute Uncomplicated (without systemic symptoms) or Complicated (systemic symptoms)? @ -Uncomplicated Side effects of treatment? @ -No Exacerbation, Progression, or Severe Exacerbation? @ -No Poses a threat to life or bodily function? How? (Chest pain, [place], [place], pneumonia, PE, COPD, DKA, ARF, appy, cholecystitis, CVA, Diverticulitis, Homicidal, Suicidal, threat to staff... and all critical care pts) @ -No (Vince Nick) Disposition <Gillian Antony - Last Filed: 08/19/23 23:51> Is patient prescribed a controlled substance at d/c from ED?: No Time of Disposition: 04:01 <Vince Nick - Last Filed: 08/20/23 04:01> Clinical Impression: Fall from bed, initial encounter Disposition: HOME SELF-CARE Condition: Good Instructions (If sedation given, give patient instructions): Fall Prevention for Older Adults (ED) Additional Instructions: Please return to the Emergency Department if symptoms worsen or any other concerns. Please follow-up with your primary care provider. Referrals: Martinez Cook MD [Primary Care Provider] - 1-2 days
--- NOTE | 2023-08-20 04:13 | XR ---
EXAM: 2 VIEWS OF THE RIGHT KNEE AND 3 VIEWS OF THE RIGHT ANKLE CLINICAL HISTORY: ITS.REASON XR Reason: right ankle injury TECHNIQUE: 2 views of the right knee and 3 views of the right ankle were obtained. COMPARISON: No relevant prior studies available. IMPRESSION: 1. No evidence of acute displaced fracture or dislocation within the right knee. 2. Mild medial tibiofemoral compartment, moderate lateral tibiofemoral compartment, and moderate patellofemoral compartment osteoarthrosis noted. 3. Lucency noted at the medial malleolus which may relate to sequela of age indeterminate trauma. Associated with this is widening of the medial clear space which can be seen with ligamentous injury. 4. Soft tissue swelling about the right ankle. 5. Given bone demineralization, if there is further concern, consider MRI.
[2023-08-20 04:25] VITALS: BP 118/68; PULSE 72; RESP 16
== END 2023-08-20 04:10 | disposition home or self-care (01) ==
LOC: EC 23:24
DX: S99.911A Unspecified injury of right ankle, initial encounter (principal); Z88.5 Allergy status to narcotic agent; X50.0XXA Overexertion from strenuous movement or load, initial encounter
CPT/HCPCS: 99283